=== PATIENT | female | born 1995 | race Caucasian/White ===

== ENCOUNTER 2017-10-27 14:21 | Emergency (ER) | payer SELFPAY ==
[2017-10-27 14:23] VITALS: BP 130/67; PULSE 70; RESP 16; TEMP 36.4; O2SAT 99; BMI 33.0
[2017-10-27] MEDS: DiphenhydrAMINE 50 MG/ML Syringe 25 MG IV (15:43)
[2017-10-27] MEDS: Metoclopramide 10 MG/2 ML Vial IV (15:43)
[2017-10-27] MEDS: 0.9% Normal Saline 1,000 ML 1000 ML IV (15:43)
[2017-10-27] MEDS: Acetaminophen 500 MG Tablet 1000 MG PO (15:44)
[2017-10-27 15:53] LABS: Mucous, Urine 0 SEEN /hpf (<or=2+); Red Blood Cells-Urine 0 SEEN /hpf (0-5)
[2017-10-27 15:58] LABS: Color, Urine Yellow (Yellow); Glucose, Dipstick Normal (Normal); Ketone-Dipstick Negative (Negative); Leukocyte Esterase-Dipstick 100 /ul (Negative); Nitrite-Dipstick Negative (Negative); Occult Blood-Urine Negative /ul (Negative); Protein-Dipstick 15 mg/dl (Negative); Urine Bilirubin Dipstick Negative (Negative); Urine Clarity Sl. Cloudy (Clear); Urine Urobilinogen Normal (Normal)
[2017-10-27 16:15] LABS: Bacteria 1+ /hpf (None Seen); Squamous Epithelial Cells - UA 0-5 SEEN /hpf (5-10); White Blood Cells 25-50 SEEN /hpf (0-5)
--- NOTE | 2017-10-27 16:39 | ED.VISSUMM ---
- ER Visit Summary Date of Service: 10/27/17 Chief Complaint: Vomiting and History of Present Illness: The patient is a 22 F who OB is in [place] and she now did not lives down here. She does not remember her vp respiratory's name. She is a at 4 months by ultrasound. She reports that she has not had problems with nausea throughout her . However, she has been nausea and vomited 3 times a day. She denies any abdominal pain. She reports her last bowel was yesterday. She has had no melena or hematochezia. No dysuria or frequency. No vaginal bleeding or discharge. On review of systems patient reports she has a headache that is 10 out of 10 severity. She does have a history of similar headaches. She describes it as aching and behind her eyes. She does have photophobia with it. No numbness, tingling, weakness, or change in her vision. Physical Examination: Vitals: Stable. Afebrile. General: Well-nourished and well-developed. Head: Normocephalic atraumatic. Neck: Supple, no lymphadenopathy. No JVD. Nontender. Cardiovascular: Regular rate and rhythm. No murmurs. Respiratory: No respiratory distress. Clear to auscultation bilaterally. Abdominal: Soft, nontender, nondistended, normal bowel sounds. No guarding, rebound, or peritoneal signs. Gravid uterus. Back: Nontender. Extremities: Nontender, no edema. Skin: Normal color, no rash. Neurologic: Alert and oriented ?3. Cranial nerves II through XII are intact. Normal strength and sensation. Psych: Normal affect. Test Results: UA has 25-50 white blood cells with 1+ bacteria. Emergency Department Course and Treatment: Patient had an IV placed. She was given Reglan, Toradol, and Rocephin IV. She is given Tylenol p.o. heart tones were 110. On repeat exam patient reports her headache is resolved. Treatment Plan: Patient will be discharged on Keflex and Zofran. Instructed to follow-up with Dr. Watson in 1 week for another exam. Return to the emergency department for any worsening symptoms. Disposition: To home in improved and stable condition. Impression: 1. Second trimester . 2. UTI. 3. Cephalgia. This note was generated with [employer] software. It may contain incorrect words, spelling, and punctuation that were not noted in review of the chart prior to signing ED Disposition - Plan for ED Patient: Disposition: Home or Assisted Living Chief Complaint: Nausea/Vomiting Instructions: ED UTI Cystitis Female Prescriptions: Ondansetron [Zofran Odt] 4 mg PO Q8H PRN PRN #10 tablet PRN Reason: Nausea Cephalexin [Keflex] 500 mg PO Q12 #14 capsule Referrals: Vandana Watson MD [STAFF PHYSICIAN] - 1 Week
[2017-10-27] MEDS: Ceftriaxone 1 GM/50 ML BAG IV (16:59)
[2017-10-27 18:10] VITALS: BP 122/74; PULSE 61; RESP 15; O2SAT 99
== END 2017-10-27 18:11 | disposition home or self-care (01) ==
PROVIDERS: Emergency Provider Emergency Medicine
DX: O23.42 Unspecified infection of urinary tract in pregnancy, second trimester (principal); O26.892 Other specified pregnancy related conditions, second trimester; R51 Headache; O99.89 Other specified diseases and conditions complicating pregnancy, childbirth and the puerperium; J02.9 Acute pharyngitis, unspecified; R05 Cough; O99.332 Smoking (tobacco) complicating pregnancy, second trimester; F17.200 Nicotine dependence, unspecified, uncomplicated; Z3A.00 Weeks of gestation of pregnancy not specified
CPT/HCPCS: 81001; 87086; 87088; 96361; 96365; 96374; 96375; 99283; J7030; A4216

== ENCOUNTER 2018-04-01 10:25 | Outpatient (CLI) | payer MEDICAID, SELFPAY ==
[2018-04-01 10:14] VITALS: BP 147/80; PULSE 120; RESP 16; TEMP 36.4; O2SAT 98; BMI 27.8
--- NOTE | 2018-04-01 10:30 | ED.RN ---
PT WENT TO OB
--- NOTE | 2018-04-01 10:50 | OB.TRI.NOTE ---
- Problem List (1) Abdominal pain Status: Acute History of Present Illness Date of Service: 04/01/18 Was patient seen by the physician?: Yes Reason For Visit: R/LABOR Date of Service: 04/01/18 History of Present Illness: Patient and her partner state they are not sure if she is . She says she has seen our office for a visit, but she does not know who she saw or when she saw us. Of note, she is not in our system and no prior visits are seen. She has taken home tests that were all negative. She does not know when her LMP was. She is a poor historian. She says this morning she began having RLQ pain that is severe and constant, and wraps around to her back. Has a good appetite but states she is having emesis that started today. No nausea. Denies fevers, chills, constipation, diarrhea, dysuria, hematuria. Allergies No Known Allergies Allergy (Verified 10/27/17 14:24) - Pertinent Past Medical History Pertinent Past Medical History: Patient denies any significant PMH or PSH history. She states she is not taking any medications Review of Systems Constitutional: Denies: Chills, Fever Gastrointestinal: Reports: Abdominal Pain, Vomiting. Denies: Constipation, Diarrhea, Nausea Genitourinary: Denies: Dysuria, Hematuria Physical Exam Vitals: Vital Signs Temp Pulse Resp BP Pulse Ox 97.6 F L 120 H 16 147/80 H 98 04/01/18 10:14 04/01/18 10:14 04/01/18 10:14 04/01/18 10:14 04/01/18 10:14 General: Alert, No apparent distress HEENT: Atraumatic Lungs: - - No increased resp effort Abdomen: Soft, Non-Distended, - - +Tenderness in RLQ, no rebounding, no gaurding, no rigidity Neurological: Neuro grossly intact Impression/Plan - TAUS performed showing a normal uterus, normal right ovary, and left ovary unable to be visualized - Will get urine test - Patient to then go to the ED for further workup of RLQ pain
[2018-04-01 11:04] LABS: Internal QC Validated? YES +Cl - CLEAR BKGD; Pregnancy, Urine Negative Negative
[2018-04-01 11:12] VITALS: BMI 27.8
--- NOTE | 2018-04-01 11:32 | NURSING ---
Patient presents to L&D with abdominal pain, unsure of LMP and states she is 21 weeks but she believes is due in April or May. Patient states she sees the [facility]. Dr. Anguiano on unit, US completed followed up by urine test which was negative. Plans per Dr. Anguiano to discharge patient from L&D and sent to ER for further evaluation. ER charge nurse called and updated on plan.
== END 2018-04-01 12:54 | disposition short-term general hospital (02) ==
LOC: WPOUT 10:43 → WP 10:43
PROVIDERS: Visit Provider Obstetrics & Gynecology
DX: R10.31 Right lower quadrant pain (principal); R11.10 Vomiting, unspecified
CPT/HCPCS: 59050; 76815; 81025; 99218; G0378

== ENCOUNTER 2018-04-01 11:27 | Emergency (ER) | payer MEDICAID, SELFPAY ==
[2018-04-01 11:12] VITALS: BMI 27.8
[2018-04-01 11:28] VITALS: BP 108/68; PULSE 96; RESP 16; TEMP 36.4; O2SAT 98; BMI 27.8
--- NOTE | 2018-04-01 11:42 | CT_ITS ---
STUDY: CT ABDOMEN AND PELVIS WITHOUT CONTRAST REASON FOR EXAM: Female, 22 years old. abdominal pain this am RADIATION DOSAGE (If Supplied By Facility): CTDIvol = ( 7.18 ) mGy, DLP = ( 358.80 ) mGycm TECHNIQUE: Transaxial images were obtained from the dome of the diaphragm to the symphysis pubis without oral contrast, and without intravenous contrast. Sagittal and coronal images were reconstructed. Individualized dose optimization techniques were used for this CT. COMPARISON: None. FINDINGS: The visualized lung bases are unremarkable. The visualized portions of the heart are within normal limits. Normal liver. Normal gallbladder and extrahepatic biliary system. Normal spleen. Normal pancreas. Normal bilateral adrenal glands. Normal right kidney. Normal left kidney. Normal visualized stomach. Normal small intestine. Normal colon. The appendix is visualized and appears normal. Normal abdominal aorta. Normal inferior vena cava. Normal retroperitoneum. There is mild induration of the mesenteric root with mildly prominent lymph nodes, but no dominant chandana mass. Normal urinary bladder. There is atrophy of the uterus. There is a vaginal tampon. Normal abdominal wall. Normal osseous structures. CT/Abdomen/Pelvis without Cont IMPRESSION: 1. No hydronephrosis or urinary tract calculi. 2. 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 NO bowel wall thickening. Electronically Signed: Sukhjinder Stern MD at 12:16 EST , Service support ,
--- NOTE | 2018-04-01 11:45 | ED.VISSUMM ---
- ER Visit Summary Date of Service: 04/01/18 Chief Complaint: Abdominal pain History of Present Illness: The patient is a 22 F who woke from sleep this morning around 3 AM with abdominal pain. She states it feels that starts under her ribs, moves down her abdomen, and then wraps around her sides. She initially claimed to be approximately 5 months and was sent to OB. She was seen here in the ER in October 2007 and documents at that time showed history of 4-month and heart tones are measured at 110. Will be determined the patient was not in fact was sent back to the ER for further workup. Patient reports unknown last period. She states that she had 4 episodes of vomiting this morning. She denies diarrhea. She does not know when her last bowel movement was. She denies any prior abdominal surgeries. Physical Examination: Vital signs unremarkable. Patient sitting upright in bed no acute distress. Head neck examination normal. Heart is regular rate and rhythm. Lungs sounds are clear. Abdomen is soft with diffuse tenderness, worse in the right lower quadrant. Active bowel sounds are noted throughout. Test Results: CBC reveals a white count 11.7 with 76% neutrophils. Chemistry studies unremarkable. Urinalysis shows greater than 100 RBCs with 5-[address] flank shows no evidence of hydronephrosis or urinary tract calculus. Vaginal tampon is noted. Emergency Department Course and Treatment: Patient was given IV fluids, Toradol, and Zofran. On repeat evaluation she is resting comfortably and does feel improved. She now tells me that her periods started during the night last night and she put a tampon in. She did get up to the restroom and removed the tampon. She denies any vaginal discharge. She is given prescription for Toradol and Zofran. Treatment Plan: [] Disposition: Discharge Impression: Pelvic pain This note was generated with [employer] dictation software. It may contain incorrect words, spelling, and punctuation that were not noted in review of the chart prior to signing ED Disposition - Plan for ED Patient: Disposition: Home or Assisted Living Instructions: ED Abdominal Pain Unkn Cause Prescriptions: Ondansetron [Zofran Odt] 4 mg PO Q8H PRN PRN #10 tablet PRN Reason: Nausea Ketorolac [Toradol] 10 mg PO Q6H PRN #20 tablet PRN Reason: Pain Referrals: Sara Anguiano DO [STAFF PHYSICIAN] - As Needed
[2018-04-01 11:51] LABS: Mucous, Urine 0 SEEN /hpf (<or=2+)
[2018-04-01 11:52] LABS: Color, Urine Yellow (Yellow); Glucose, Dipstick Normal (Normal); Ketone-Dipstick Negative (Negative); Leukocyte Esterase-Dipstick 25 /ul (Negative); Nitrite-Dipstick Negative (Negative); Occult Blood-Urine 250 /ul (Negative); Protein-Dipstick 15 mg/dl (Negative); Urine Bilirubin Dipstick Negative (Negative); Urine Clarity Clear (Clear); Urine Urobilinogen Normal (Normal)
[2018-04-01] MEDS: Ondansetron 4 MG/2 ML Vial IV (11:53)
[2018-04-01] MEDS: Ketorolac 30 MG/ML Syringe IV (11:53)
[2018-04-01] MEDS: 0.9% Normal Saline 1,000 ML 1000 ML IV (11:53)
[2018-04-01 11:58] LABS: Bacteria 1+ /hpf (None Seen); Red Blood Cells-Urine > 100 SEEN /hpf (0-5); Squamous Epithelial Cells - UA 5-10 SEEN /hpf (5-10); White Blood Cells 0-5 SEEN /hpf (0-5)
[2018-04-01 12:04] LABS: Absolute Lymphocyte Count 1.94 X10^3/ul (0.83-4.51); Basophil# 0.03 X10^3/uL; Basophil% 0.3 % (0-1); Eosinophil# 0.06 X10^3/uL; Eosinophils% 0.5 % (0-5); Hematocrit 45.5 % (37-47); Hemoglobin 14.6 g/dl (12.0-15.0); Lymphocyte # 1.94 X10^3/ul (4.0); Lymphocyte % 16.7 % (19-41); Mean Corp Hgb Conc 32.1 g/gl (32-36); Mean Corpuscular Hgb 28.2 pg (27.0-32.0); Monocyte# 0.62 X10^3/uL; Monocyte% 5.3 % (0-10); Neutrophil # 8.97 X10^3/uL (2.7-7.7); Neutrophil % 76.9 % (47-70); Platelet Count 322 K/mm3 (150-450); RBC Distribution Width CV 14.5 % (11.6-14.6); RBC Distribution Width SD 46.6 fl (35.1-43.9); Red Blood Count 5.17 M/mm3 (4.2-5.4); White Blood Count 11.7 K/mm3 (4.4-11.0)
[2018-04-01 12:05] LABS: POSITIVE COUNT NO; POSITIVE DIFFERENTIAL NO; POSITIVE MORPHOLOGY NO
[2018-04-01 12:16] LABS: Anion Gap 11 (5-15); BUN 9 mg/dL (7-18); BUN/Creat Ratio 15.7 RATIO (10-20); Calcium,Total 8.5 mg/dL (8.5-10.1); Chloride 108 mmol/L (98-107); Creatinine, Serum 0.57 mg/dL (0.55-1.02); EST Glomerular Filtration Rate 140 mL/min (>60); Est Glom Filt Rate - Afr Amer 170 mL/min (>60); Estimated Creatinine Clearance 117.81 ml/min; Glucose 78 mg/dL (74-106); Potassium 3.7 mmol/L (3.5-5.1); Sodium Level 142 mmol/L (136-145)
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
--- NOTE | 2018-04-01 14:17 | ED.DEP ---
ED Disposition - Plan for ED Patient: Disposition: Home or Assisted Living Instructions: ED Abdominal Pain Unkn Cause Prescriptions: Ondansetron [Zofran Odt] 4 mg PO Q8H PRN PRN #10 tablet PRN Reason: Nausea Ketorolac [Toradol] 10 mg PO Q6H PRN #20 tablet PRN Reason: Pain Referrals: Sara Anguiano DO [STAFF PHYSICIAN] - As Needed
[2018-04-01 14:56] VITALS: BP 101/64; PULSE 91; RESP 16; O2SAT 98; O2SAT 99
== END 2018-04-01 14:57 | disposition home or self-care (01) ==
PROVIDERS: Emergency Provider Emergency Medicine
DX: R10.2 Pelvic and perineal pain (principal); R11.2 Nausea with vomiting, unspecified; Z72.0 Tobacco use; R10.31 Right lower quadrant pain
CPT/HCPCS: 59050; 74176; 76815; 80048; 81001; 81025; 85025; 96361; 96374; 96375; 99218; 99283; J7030; G0378; J2405

== ENCOUNTER 2018-05-04 23:27 | Outpatient (REF) | payer SELFPAY ==
[2018-05-05 03:24] LABS: Pregnancy, Serum, hCG Quali. NEGATIVE Negative (0-9 Nonpreg)
== END 2018-05-05 04:00 | disposition home or self-care (01) ==
LOC: EDREF 23:27
PROVIDERS: Emergency Medicine
DX: Z04.41 Encounter for examination and observation following alleged adult rape (principal)
CPT/HCPCS: 84703

== ENCOUNTER 2018-06-09 15:54 | Emergency (ER) | payer MEDICAID, SELFPAY ==
[2018-06-09 15:55] VITALS: BP 118/60; PULSE 87; RESP 18; TEMP 36.4; O2SAT 100; BMI 24.9
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
[2018-06-09 17:13] LABS: hCG Titer Quant., Serum < 1 mIU/mL (<9 non-preg)
[2018-06-09 18:01] VITALS: PULSE 87; RESP 16; O2SAT 98
[2018-06-09 19:31] VITALS: BP 114/73; PULSE 81; RESP 16; O2SAT 99
== END 2018-06-09 19:32 | disposition home or self-care (01) ==
PROVIDERS: Emergency Provider Emergency Medicine
DX: S80.01XA Contusion of right knee, initial encounter (principal); S80.211A Abrasion, right knee, initial encounter; S00.83XA Contusion of other part of head, initial encounter; S00.81XA Abrasion of other part of head, initial encounter; M54.2 Cervicalgia; V13.4XXA Pedal cycle driver injured in collision with car, pick-up truck or van in traffic accident, initial encounter; Y93.9 Activity, unspecified; Y92.9 Unspecified place or not applicable; F17.200 Nicotine dependence, unspecified, uncomplicated
CPT/HCPCS: 72040; 73560; 84702; 99285; A4216

== ENCOUNTER 2018-08-04 16:13 | Emergency (ER) | payer MEDICAID, SELFPAY ==
[2018-08-04 16:15] VITALS: BP 114/64; PULSE 115; RESP 18; TEMP 36.6; O2SAT 99; BMI 26.6
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
--- NOTE | 2018-08-04 17:02 | RAD_ITS ---
STUDY: X-RAY - LEFT FOOT CLINICAL: Female, 23 years old. Fall and pain TECHNIQUE: 3 view(s) of the foot. COMPARISON: None. FINDINGS: Normal talus, calcaneus, and tarsal bones. Normal visualized subtalar, talonavicular, calcaneocuboid, tarsal and tarsometatarsal articulations. Normal metatarsi. Normal metatarsophalangeal joint of the great toe. Normal tibial and fibular sesamoid bones. Normal interphalangeal joint of the great toe. Normal phalanges of the great toe. Normal second through fifth metatarsophalangeal joints. Normal interphalangeal joints and phalanges of the lesser toes. The soft tissue structures are unremarkable. RAD/Foot min 3 Views IMPRESSION: No acute osseous injury is evident. Electronically Signed: Vicente Moran MD at 17:26 EDT Tel , Service support ,
[2018-08-04] MEDS: Acetaminophen 500 MG Tablet 1000 MG PO (17:13)
--- NOTE | 2018-08-04 18:27 | ED.VISSUMM ---
- ER Visit Summary Date of Service: 08/04/18 Chief Complaint: Twisted left lateral ankle c/o of pain. History of Present Illness: The patient is a 23 F past medical surgical history. Twisted her ankle several times a day because of pain in the left lateral ankle foot and left lower leg. Denies other injuries. No prior history of surgery to the left leg. Physical Examination: Well-appearing young female no acute distress. Vital signs are stable afebrile. H EENT exam atraumatic nontender. Light. C-spine nontender. Lungs clear to auscultation bilaterally. Heart regular rate and rhythm no murmur. Chest nontender. Abdomen soft nontender. Both upper extremities right lower extremity nontender, neurovascular intact with normal range of motion, motor strength and sensation. The left lateral ankle is mildly swollen and tender. DP pulses intact. Dorsi and plantar flexion intact she also tenderness along the proximal left foot and mid portion to lower leg. The left hip and knee are nontender. The left lower extremity is neurovascular intact. There is no gross bony deformities. Achilles tendon is intact. Test Results: Left tib-fib x-ray 2 view shows no acute abnormality read both by myself and radiologist. Left foot x-ray shows no acute abnormalities 3 views read both by myself and the radiologist. Emergency Department Course and Treatment: I did go over the x-rays with the patient. She was given Tylenol for pain. Treatment Plan: Treated as an ankle sprain. Ice and elevate. Tylenol Motrin for pain. Aircast. Increase activity as tolerated. Follow-up if not improving. Disposition: Discharge Impression: Left ankle sprain This note was generated with [employer] dictation software. It may contain incorrect words, spelling, and punctuation that were not noted in review of the chart prior to signing ED Disposition - Plan for ED Patient: Referrals: Care Physician,No Primary [Primary Care Provider] -
--- NOTE | 2018-08-04 18:30 | ED.DEP ---
ED Disposition - Plan for ED Patient: Disposition: Home or Assisted Living Instructions: ED Sprain Ankle W X Ray Referrals: Bridger Rodriguez MD [STAFF PHYSICIAN] - 1 Week if not improving Additional Instructions: Ice and elevate. Tylenol and Motrin for pain and swelling. Increase activity as tolerated if not improving you need to have this reevaluated. X-rays were normal today. No fracture.
[2018-08-04 18:41] VITALS: PULSE 100; RESP 16
== END 2018-08-04 18:41 | disposition home or self-care (01) ==
PROVIDERS: Emergency Provider Emergency Medicine
DX: S93.402A Sprain of unspecified ligament of left ankle, initial encounter (principal); R05 Cough; X50.1XXA Overexertion from prolonged static or awkward postures, initial encounter; Y93.9 Activity, unspecified; Y92.9 Unspecified place or not applicable; Z72.0 Tobacco use
CPT/HCPCS: 73590; 73630; 99283

== ENCOUNTER 2019-03-06 14:51 | Emergency (ER) | payer MEDICAID, SELFPAY ==
[2019-03-06 14:51] VITALS: BP 129/55; PULSE 144; RESP 24; TEMP 36.8; O2SAT 99
[2019-03-06 14:52] VITALS: BP 129/55; PULSE 144; RESP 24; TEMP 36.8; O2SAT 99; BMI 30.7
--- NOTE | 2019-03-06 15:10 | ED.VISSUMM ---
- ER Visit Summary Date of Service: 03/06/19 Chief Complaint: [Vomiting ] History of Present Illness: The patient is a 23 F [resents with vomiting that started 2 days ago. She denies any significant abdominal pain. She denies any fever. She has had some sweats. Patient unsure of her last menstrual period but thinks it was in November. She is taken some home test have been negative. She denies any diarrhea. She denies sick contacts. Patient also developed a cough that started 2 days ago. Patient has no medical history. She denies any body aches. She denies sore throat.] Physical Examination: [HEENT-PERRLA, EOMI. Cranial nerves II through XII grossly intact. TMs clear. Mucous membranes moist. No adenopathy. Cardiovascular-regular rate and rhythm without murmur or ectopy Lungs-clear to auscultation, chest wall stable without crepitus or subcu emphysema Abdomen-normoactive bowel sounds, soft. Patient has some mild diffuse tenderness more specifically in the lower quadrants. There is no rebound, rigidity, or peritoneal signs. Extremities-intact ?4, normal range of motion, normal pulses, atraumatic] Test Results: [CBC with differential showed an elevated white count of 13, hemoglobin 10.6, hematocrit 32, placed to 92. Chemistries unremarkable. LFTs unremarkable. Urinalysis unremarkable. hCG was positive. A quant was performed and was 8859. Ultrasound obtained showed a 24-week 4-day IUP with a heart rate of 156. Influenza screen was positive.] Emergency Department Course and Treatment: [Was given a liter normal saline fluid bolus. Patient given Zofran 4 mg IV.] Treatment Plan: [Patient will be discussed with PLANT MAINTENANCE MECHANIC on-call to arrange follow-up for the patient as she is had no care. Patient will be started on Tamiflu.] Disposition: [Discharged home in stable condition] Impression: [Influenza 24 weeks 4 days] This note was generated with [employer] software. It may contain incorrect words, spelling, and punctuation that were not noted in review of the chart prior to signing ED Disposition - Plan for ED Patient: Referrals: Care Physician,No Primary [Primary Care Provider] -
[2019-03-06] MEDS: 0.9% Normal Saline 1,000 ML 1000 ML IV (15:26)
[2019-03-06] MEDS: Ondansetron 4 MG/2 ML Vial IV (15:26)
[2019-03-06 15:42] LABS: ALB/GLOB Ratio 0.6 RATIO (0.9-2.4); AST(SGOT) 16 U/L (15-37); Alanine Aminotransfer ALT/SGPT 26 U/L (13-56); Albumin, Serum 2.4 g/dL (3.2-5.0); Alkaline Phosphatase 82 U/L (45-117); Anion Gap 6 (5-15); BUN 7 mg/dL (7-18); BUN/Creat Ratio 12.6 RATIO (10-20); Calcium,Total 8.8 mg/dL (8.5-10.1); Chloride 107 mmol/L (98-107); Creatinine, Serum 0.56 mg/dL (0.55-1.02); EST Glomerular Filtration Rate 144 mL/min (>60); Est Glom Filt Rate - Afr Amer 174 mL/min (>60); Estimated Creatinine Clearance 130.35 ml/min; Globulin 4.2 g/dL (2.2-4.2); Glucose 94 mg/dL (74-106); Potassium 3.8 mmol/L (3.5-5.1); Protein, Total 6.6 g/dL (6.4-8.2); Sodium Level 136 mmol/L (136-145)
[2019-03-06 15:57] LABS: Internal QC Validated? YES +Cl - CLEAR BKGD
[2019-03-06 15:59] LABS: Pregnancy, Serum, hCG Quali. POSITIVE Negative
[2019-03-06 16:00] LABS: Bacteria 0 SEEN /hpf (None Seen); Mucous, Urine 0 SEEN /hpf (<or=2+); Red Blood Cells-Urine 0 SEEN /hpf (0-5)
--- NOTE | 2019-03-06 16:00 | US_ITS ---
STUDY: SECOND AND THIRD TRIMESTER OBSTETRICAL ULTRASOUND REASON FOR EXAM: Female, 23 years old PELVIC PAIN RADIATES TO BACK - X 1 YEAR UNKNOWN LMP LMP: Unknown TECHNIQUE: Transabdominal TECHNICAL QUALITY: Adequate. PRIOR ULTRASOUND: None. FINDINGS: There is a single intrauterine fetus. The fetus is in a cephalic presentation. There is demonstrated cardiac activity with a heart rate of 156 bpm. There is a normal amniotic fluid volume. The largest amniotic fluid pocket measures 3.1 cm. The amniotic fluid index (SHANTA) is 13.6 cm. The placenta is anterior in location and is not low lying. There are Grade 1 placental changes.. Right ovary not visualized left ovary measures 4.1 x 3 x 2.6 cm. BIOMETRY: BPD: 6 cm: 24 weeks, 4 days HC: 22.8 cm: 24 weeks, 6 days AC: 18.9 cm: 23 weeks, 5 days FL: 4.5 cm: 24 weeks, 5 days CI: 78% FL/BPD: 74% FL/AC: 24% HC/AC: 1.21 age by current US: 24 weeks, 4 days. DRAKE by current US: June 22, 2019. Estimated weight: 670 grams, +/- 98 grams. US/OB Limited With Biometrics IMPRESSION: 24 week 4 day intrauterine Electronically Signed: Abdullahi St MD at 17:40 EST , Service support ,
[2019-03-06 16:04] LABS: Color, Urine Yellow (Yellow); Glucose, Dipstick Normal (Normal); Ketone-Dipstick Negative (Negative); Leukocyte Esterase-Dipstick 25 /ul (Negative); Nitrite-Dipstick Negative (Negative); Occult Blood-Urine Negative /ul (Negative); Protein-Dipstick 15 mg/dl (Negative); Specific Gravity, Urine 1.015 (1.002-1.030); Urine Bilirubin Dipstick Negative (Negative); Urine Clarity Sl. Cloudy (Clear); Urine Urobilinogen Normal (Normal)
[2019-03-06 16:35] LABS: Absolute Lymphocyte Count 1.02 X10^3/uL (0.83-4.51); Absolute Neutrophil Count 10.7 X10^3/uL (2.0-7.7); Basophil# 0.02 X10^3/uL; Basophil% 0.2 % (0-1); Eosinophil# 0.01 X10^3/uL; Eosinophils% 0.1 % (0-5); Hemoglobin 10.6 g/dL (12.0-15.0); Lymphocyte # 1.02 X10^3/ul (4.0); Lymphocyte % 7.9 % (19-41); Mean Corp Hgb Conc 33.1 g/dL (32-36); Mean Corpuscular Hgb 29.9 pg (27.0-32.0); Mean Corpuscular Volume 90.4 fL (81-99); Mean Platelet Vol. 10.7 fl (6.2-12.0); Monocyte# 1.18 X10^3/uL; Monocyte% 9.1 % (0-10); NRBC Flagged by Analyzer 0 % (0-5); Neutrophil # 10.65 X10^3/uL (2.7-7.7); Neutrophil % 82.1 % (47-70); Platelet Count 292 K/mm3 (150-450); RBC Distribution Width CV 13.2 % (11.6-14.6); RBC Distribution Width SD 43.3 fl (35.1-43.9); Red Blood Count 3.54 M/mm3 (4.2-5.4)
[2019-03-06 16:46] LABS: Squamous Epithelial Cells - UA 0-5 SEEN /hpf (5-10); White Blood Cells 0-5 SEEN /hpf (0-5)
[2019-03-06 17:03] LABS: hCG Titer Quant., Serum 8859 mIU/mL (1-3)
[2019-03-06 17:26] VITALS: BP 127/65; PULSE 113; RESP 15; O2SAT 99
--- NOTE | 2019-03-06 18:10 | ED.DEP ---
ED Disposition - Plan for ED Patient: Instructions: INFLUENZA (Adult), Care for a Healthy Baby Prescriptions: Oseltamivir Phosphate [Tamiflu] 75 mg PO BID #10 cap Transmission Status: Pending to [facility] Ondansetron [Zofran Odt] 4 mg PO Q8H PRN PRN #10 tab PRN Reason: Nausea Transmission Status: Pending to [facility] Referrals: Care Physician,No Primary [Primary Care Provider] - Durga Fuller MD [STAFF PHYSICIAN] - 3-5 Days
[2019-03-06 19:01] VITALS: BP 111/67; PULSE 116; RESP 14; O2SAT 98
== END 2019-03-06 19:05 | disposition home or self-care (01) ==
PROVIDERS: Emergency Provider Emergency Medicine
DX: O99.512 Diseases of the respiratory system complicating pregnancy, second trimester (principal); J11.1 Influenza due to unidentified influenza virus with other respiratory manifestations; O99.332 Smoking (tobacco) complicating pregnancy, second trimester; F17.200 Nicotine dependence, unspecified, uncomplicated; Z3A.24 24 weeks gestation of pregnancy
CPT/HCPCS: 76816; 80048; 80053; 81001; 84702; 84703; 85025; 87804; 96361; 96374; 99283; J7030; J2405

== ENCOUNTER → 2019-03-13 15:44 | Outpatient (CLI) | payer MEDICAID, SELFPAY ==
[2019-03-13 17:58] LABS: Absolute Lymphocyte Count 3.87 X10^3/uL (0.83-4.51); Absolute Neutrophil Count 8.3 X10^3/uL (2.0-7.7); Basophil# 0.04 X10^3/uL; Basophil% 0.3 % (0-1); Eosinophil# 0.06 X10^3/uL; Eosinophils% 0.5 % (0-5); Hematocrit 37.6 % (37-47); Lymphocyte # 3.87 X10^3/ul (4.0); Lymphocyte % 29.5 % (19-41); Mean Corp Hgb Conc 31.9 g/dL (32-36); Mean Corpuscular Hgb 29.4 pg (27.0-32.0); Mean Corpuscular Volume 92.2 fL (81-99); Mean Platelet Vol. 10.5 fl (6.2-12.0); Monocyte% 5.3 % (0-10); NRBC Flagged by Analyzer 0 % (0-5); Neutrophil # 8.32 X10^3/uL (2.7-7.7); Neutrophil % 63.3 % (47-70); Platelet Count 424 K/mm3 (150-450); RBC Distribution Width CV 13.1 % (11.6-14.6); RBC Distribution Width SD 44.2 fl (35.1-43.9); Red Blood Count 4.08 M/mm3 (4.2-5.4); White Blood Count 13.1 K/mm3 (4.4-11.0)
[2019-03-13 18:02] LABS: Color, Urine Yellow (Yellow); Glucose, Dipstick Normal (Normal); Ketone-Dipstick 50 mg/dl (Negative); Leukocyte Esterase-Dipstick 500 /ul (Negative); Nitrite-Dipstick Negative (Negative); Occult Blood-Urine Negative /ul (Negative); Protein-Dipstick Negative (Negative); Urine Clarity Cloudy (Clear); Urine Urobilinogen 4 mg/dl (Normal)
[2019-03-13 18:06] LABS: Urine Bilirubin Dipstick 1 mg/dL (Negative)
[2019-03-13 18:34] LABS: Thyroid Stim Hormone (TSH) 1.27 uIU/mL (0.358-3.74)
[2019-03-13 18:39] LABS: Amphetamine Urine VISTA NEGATIVE (<1000 ng/mL); Barbiturate Urine VISTA NEGATIVE (< 200 ng/mL); Benzodiazepine Urine VISTA NEGATIVE (< 200 ng/mL); Cocaine Urine VISTA NEGATIVE (< 300 ng/mL); Ecstacy Urine VISTA NEGATIVE (< 500 ng/mL); Methadone Urine VISTA NEGATIVE (< 300 ng/mL); PCP Urine VISTA NEGATIVE (< 25 ng/mL); THC Urine VISTA NEGATIVE (< 50 ng/mL); Vista UDS pH Range 5
[2019-03-14 01:52] LABS: Prenatal RPR NONREACTIVE (NONREACTIVE)
[2019-03-14 11:22] LABS: HIV - WCH Non-Reactive (Nonreactive); Hepatitis B Surface Antigen Non-Reactive (Nonreactive); Hepatitis C Antibody Non-Reactive (Nonreactive); Rubella IgG 20.1 IU/mL
[2019-03-15 17:09] LABS: V-Zoster IgG (Immunity) 502 index (Immune >165)
== END ==
PROVIDERS: Visit Provider Obstetrics & Gynecology
DX: Z34.82 Encounter for supervision of other normal pregnancy, second trimester (principal)
CPT/HCPCS: 36415; 80307; 81002; 84443; 85025; 86703; 86762; 86787; 86803; 87340

== ENCOUNTER → 2019-03-27 13:29 | Outpatient (CLI) | payer MEDICAID, SELFPAY ==
[2019-03-27 15:49] LABS: Hematocrit 37.8 % (37-47); Hemoglobin 12.1 g/dL (12.0-15.0); Mean Corpuscular Hgb 29.2 pg (27.0-32.0); Mean Corpuscular Volume 91.3 fL (81-99); Mean Platelet Vol. 10.5 fl (6.2-12.0); Platelet Count 407 K/mm3 (150-450); RBC Distribution Width SD 43.5 fl (35.1-43.9); Red Blood Count 4.14 M/mm3 (4.2-5.4); White Blood Count 17.5 K/mm3 (4.4-11.0)
[2019-03-27 15:59] LABS: Glucose Challenge Gest 1H 50g 136 mg/dL (70-140)
== END ==
LOC: LABSPEC 13:33 → WOBLAB 13:34
PROVIDERS: Visit Provider Obstetrics & Gynecology
DX: Z34.82 Encounter for supervision of other normal pregnancy, second trimester (principal)
CPT/HCPCS: 36415; 82950; 85027

== ENCOUNTER → 2019-04-24 | Outpatient (CLI) | payer MEDICAID, SELFPAY ==
[2019-04-24 17:04] LABS: ROM Internal Control Test YES-OK TO RESULT pt. (Internal QC); ROM Patient Test Negative (Negative)
== END | disposition home or self-care (01) ==
LOC: LABSPEC 16:31
PROVIDERS: Visit Provider Obstetrics & Gynecology
DX: O42.90 Premature rupture of membranes, unspecified as to length of time between rupture and onset of labor, unspecified weeks of gestation (principal); Z3A.00 Weeks of gestation of pregnancy not specified
CPT/HCPCS: 84112

== ENCOUNTER → 2019-05-31 | Outpatient (CLI) | payer MEDICAID, SELFPAY | END | disposition home or self-care (01) | LOC: LABSPEC 16:36 | PROVIDERS: Referring Provider Obstetrics & Gynecology; Visit Provider Obstetrics & Gynecology | DX: R30.0 Dysuria (principal); Z36.85 Encounter for antenatal screening for Streptococcus B | CPT/HCPCS: 87081 ==

== ENCOUNTER 2019-06-07 13:56 | Inpatient (IN) | payer MEDICAID, SELFPAY ==
[2019-06-07] VITALS (25 sets, daily range): BP systolic 111–141; BP diastolic 53–80; PULSE 77–132; TEMP 36.4–37; O2SAT 89–100; BMI 32.5
[2019-06-07 17:08] LABS: ROM Internal Control Test YES-OK TO RESULT pt. (Internal QC)
[2019-06-07 17:11] LABS: ROM Patient Test POSITIVE (Negative)
[2019-06-07] MEDS: Lactated Ringers 1,000 ML 50 ML IV (17:58)
[2019-06-07 18:15] LABS: Absolute Lymphocyte Count 3.92 X10^3/uL (0.83-4.51); Absolute Neutrophil Count 12.5 X10^3/uL (2.0-7.7); Basophil# 0.05 X10^3/uL; Basophil% 0.3 % (0-1); Eosinophils% 0.6 % (0-5); Hematocrit 39.8 % (37-47); Lymphocyte # 3.92 X10^3/ul (4.0); Lymphocyte % 21.8 % (19-41); Mean Corp Hgb Conc 32.7 g/dL (32-36); Mean Corpuscular Hgb 29.5 pg (27.0-32.0); Mean Corpuscular Volume 90.5 fL (81-99); Mean Platelet Vol. 9.9 fl (6.2-12.0); Monocyte# 1.31 X10^3/uL; Monocyte% 7.3 % (0-10); NRBC Flagged by Analyzer 0 % (0-5); Neutrophil # 12.49 X10^3/uL (2.7-7.7); Neutrophil % 69.3 % (47-70); Platelet Count 439 K/mm3 (150-450); RBC Distribution Width CV 13.4 % (11.6-14.6); RBC Distribution Width SD 44.8 fl (35.1-43.9)
[2019-06-07] MEDS: Lactated Ringers 500 ML 999 ML IV ×2 (18:52→20:31)
--- NOTE | 2019-06-07 18:54 | HP.PCM_ITS ---
- Problem List (1) SROM (spontaneous rupture of membranes) Status: Acute History Date of Admission: 06/07/19 Final DRAKE: 06/22/19 Final DRAKE Source: US >20 weeks Gestational age: 37 Weeks and 6 Days History of this : This is a 24 year-old, G [1], P [], at 37 weeks gestational age with c/o LOF since 1530h Medical History: Medical History (Last Updated 06/07/19 @ 18:[address] Amy Agudelo MD) Bipolar disorder F31.9 Surgical History: Surgical History (Last Updated 06/07/19 @ 18:[address] Amy Agudelo MD) H/O wisdom tooth extraction K08.409 Allergies No Known Allergies Allergy (Verified 06/07/19 16:14) Home Medications: Home Medications Vits [Prenatabs FA] 1 tab PO DAILY 06/07/19 Smoking Status: Light Smoker (<10/day) Alcohol: None Number of Fetus(es): 1 NST - FHR Rate Baby A Baseline: 115 Variability:: Moderate Accelerations:: 15 x 15 Decelerations:: None NST Reactive:: Yes FHR Category:: Category I Uterine Activity:: 2/10 History Past Pregnancies: Past Pregnancies Delivery Date Name GA/ Weeks Outcome Route Wt Sex Labor Length Anesthesia Delivery Location Provider FOB Labs: Mom's Labs & Results 06/07/19 06/07/19 06/07/19 16:30 17:58 17:58 WBC 18.0 H RBC 4.40 Hgb 13.0 Hct 39.8 MCV 90.5 MCH 29.5 MCHC 32.7 RDW Std Deviation 44.8 H RDW Coeff of Shaheed 13.4 Plt Count 439 MPV 9.9 Immature Gran % (Auto) 0.700 Neut % (Auto) 69.3 Lymph % (Auto) 21.8 Yuba % (Auto) 7.3 Eos % (Auto) 0.6 Baso % (Auto) 0.3 Absolute Neuts (auto) 12.5 H Absolute Lymphs (auto) 3.92 Nucleated RBC % 0 Vag Amniotic Fld Detect POSITIVE H Blood Type Pending Antibody Screen Pending Course Did the patient receive Yes care? Labs Blood Type: A RH: POSITIVE RPR/VDRL/Syphilis Nonreactive Rubella status Immune HbSAg Negative Date Done: 03/13/19 Chlamydia Negative Gonorrhea Negative HIV/AIDS Non-Reactive Group B Strep: Negative Current Obstetrical History Gestational Diabetes No Incompetent Cervix No Infertility No IUGR No Macrosomia No Hypertension/Pre-eclampsia No Placenta Previa/Abruption No PTL/PROM No Uterine anomaly No Oligohydramnios No Polyhydramnios No Multiple gestation No Past Medical History Asthma No Diabetes No Hypertension No Heart disease No Mitral valve prolapse No Neurologic/Seizure disorder/ No Migraines Kidney disease No Liver disease No Varicosities No Clotting disorders/Hx of DVT No Thyroid Dysfunction No Other medical diseases HPV Psychiatric disorders Yes: bipolar Major trauma No Abnormal PAP smear No Sleep apnea No Mammogram in the last 2 years No Social History Marital Status: SINGLE Alleged father Aren Hx Smoking Yes Smoking Status Current every day smoker Expected Delivery Method: Spontaneous Vaginal Number of Visits: 6 Review of Systems Constitutional: Denies: Chills, Fever Eyes: Denies: Vision Change HEENT: Denies: Head Aches Cardiovascular: Denies: Chest Pain Respiratory: Denies: Shortness of Breath Gastrointestinal: Denies: Abdominal Pain, Vomiting Gynecological: Reports: - - contractions Neurological: Denies: Blurred vision, Double vision Physical Exam Vitals: Vital Signs Temp Pulse BP Pulse Ox 97.7 F L 84 132/60 H 99 06/07/19 18:42 06/07/19 18:42 06/07/19 18:42 06/07/19 18:42 General: Alert, Oriented x3, Cooperative, No apparent distress HEENT: Atraumatic, Normocephalic Cardiovascular: Regular rate, Regular Rhythm, Normal S1, Normal S2 Lungs: Clear to auscultation, Normal air movement, No rhonchi, No wheeze, No rales Abdomen: Soft, Non Tender, Non-Distended, Gravid Extremities:: No edema Neurological: Neuro grossly intact FACILITIES PLANT ENGINEER: Normal external genitalia Estimated gestational size: Appropriate for gestational size Presentation: Cephalic Cervix Dilation (cm): 3 Station: -2 Effacement (%): 60 Assessment/Plan All Active Problems SROM (spontaneous rupture of membranes) (Acute) This is a 24 year-old, G [1], P [], at 37 6/7 weeks gestational age, Cat I FHR -Prior exam 2--->3cm. Offered pitocin augmentation, r/b reviewed, pt declines at this time. Expectant management. -Repeat exam in approx 4 hours or sooner as indicated -Pain management per patient request -Consents signed and reviewed including review of C/S indications, risks and risks. Patient and partner given opportunity to ask questions and questions answered to their satisfaction.
[2019-06-07] MEDS: fentaNYL-bupivacaine (epidural) 100 ML BAG EPIDURAL (20:18)
[2019-06-08] VITALS (23 sets, daily range): BP systolic 98–134; BP diastolic 42–94; PULSE 79–98; RESP 14–22; TEMP 36.3–37.1; O2SAT 96–100
--- NOTE | 2019-06-08 | PLAC_PTH ---
PATIENT: KAYLA ROSA LOC: [facility] U#:[id number] AGE/SX: 24/F ROOM: WP005 RE06/07/[address]: Dr. Amy Tubbs MD : 1995 BED: 1 DIS: 06/10/2019 SPEC #: [id number] RECD: 06/08/19 02:39 STATUS: ZENAIDA REQ #: [id number] ROSARIO: 06/08/19 00:[address]: Amy Arceo DEPT: SURGICAL PATHOLOGY RECD BY: Julio Cesar Segura ENTERED: 06/10/19 10:06 SP TYPE: PLACENTA OTHR DR: No Primary Care Phys Tissues: Placenta, NOS Procedures: Surgery Specimen Level V HEADER OPERATION: Primary section PRE-OP DIAGNOSIS: 38wga, SROM, IUGR TISSUE SUBMITTED: Placenta MICROSCOPIC DIAGNOSIS Gutierrez placenta (355 gm): Umbilical cord - trivascular with no inflammation. Placental membranes - mild acute decidual inflammation. Placental disc - Nigel change, intervillous congestion and mild increased intraparenchymal fibrin plaques. AM:rachid 06/11/19 MICROSCOPIC DESCRIPTION Slides are reviewed. GROSS DESCRIPTION SPECIMEN: PLACENTA / CLINICAL INFORMATION: A. Weight: 2.179 kg B. Gestational Age: 38 weeks C. Sex: Female PLACENTAL WEIGHT (POST FIXATION): 355 gm PLACENTAL DIMENSIONS: 18 x 17 x 3.5 cm PLACENTAL SHAPE: Usual ovoid PLACENTAL WEIGHT FOR GESTATIONAL AGE: Within 10-99th percentile MEMBRANES - Present A. Insertion: Marginal B. Site of rupture from edge: Membranes appear to be incomplete. Distance of rupture cannot be assessed. C. Color of membrane: Osorio-goddard D. Abnormalities: None UMBILICAL CORD - Present A. Color: Osorio-goddard B. Insertion: Central C. Length: 16 cm D. Diameter: 1 cm E. Number of vessels: Three F. Abnormalities: A few false knots are noted. PLACENTAL DISC - Present A. Color of surface: Osorio-goddard B. surface abnormalities: None C. Maternal cotyledons: Intact with minimal tears D. Attached retro placental clot: No clot E. Cut surface: Dark red and spongy F. Lesions: None G. Separate clot: Absent SECTIONS SUBMITTED: 1. Membrane roll 2. Cord, maternal end 3. Cord, end 4. Placental disc, and maternal surfaces 5. Placental disc, and maternal surfaces 6. Placental disc, and maternal surfaces SJ:rachid 06/10/19 TC:2 CPT: 54542
[2019-06-08] MEDS: Cefazolin 2 GM in 0.9% Normal Saline 100 ML IV (00:15)
--- NOTE | 2019-06-08 00:24 | RAD_ITS ---
STUDY: X-RAY - ABDOMEN/PELVIS REASON FOR EXAM: Female, 24 years old. tool count low abdomen post emergency C section TECHNIQUE: Single AP view of the abdomen / pelvis. COMPARISON: None. FINDINGS: Normal visualized lung bases. There is an unremarkable bowel gas pattern. There is no demonstrated free abdominal air. The visualized liver, spleen and kidneys are grossly normal in size and morphology. Normal soft tissue structures. Normal visualized osseous structures. RAD/Abdomen Single View (Portable) IMPRESSION: Normal x-ray examination of the abdomen and pelvis. Electronically Signed: Ashly Mcneil MD at 1:37 EDT , Service support ,
--- NOTE | 2019-06-08 00:48 | PCM.OPRPT ---
Problem List (1) 38 weeks gestation of Status: Acute (2) Non-reassuring electronic monitoring tracing Status: Acute Delivery Classification: Stat Final DRAKE: 06/22/19 Final DRAKE Source: US <20 weeks Gestational age: 38 Weeks and 0 Days regasification plant operator: Adri Dunn Type of Anesthesia:: Epidural Date of Procedure: 06/08/19 Pre-Operative Diagnosis: 38wga, non-reassuring heart rate tracing Post-Operative Diagnosis: 38wga, non-reassuring heart rate tracing Indications: 24yo G1 @ 38 weeks gestation who presenting with SROM in latent labor. She had a prolonged FHR deceleration persisting despite resuscitative measures and was advised to proceed with emergent section. Indications for : Nonreassuring Status Description of Procedure: The patient was taken to the operating room, placed in dorsal supine position. The abdomen was prepped with betadine splash and draped in sterile fashion. The epidural was found to be adequate. A Pfannensteil incision was made using a scalpel and brought down to incise the subcutaneous tissue and rectus fascia at the midline. Subcutaneous tissue and rectus fascia were bluntly dissected laterally. The rectus muscles were bluntly at the midline. The peritoneum was bluntly entered and . The bladder blade was placed into the abdomen and the vesicouterine peritoneal fold identified. A low transverse hysterotomy was made using the [Metzenbaum scissors]. The hysterotomy was blunty extended cephalad and caudad. The head was elevated to the level of the hysterotomy and the infant delivered revealing vigorous [female] infant. The cord was doubly clamped and cut after 30 seconds. The infant was passed to awaiting [nursery personnel]. The placenta was [expressed] from the uterus and appeared intact on inspection. The uterus was cleared of debris. The hysterotomy was then repaired using 0 Vicryl running lock suture. A second imbricating layer was also placed for additional hemostasis. The bladder blade was removed. The anterior cul-de-sac was cleared of debris. The peritoneum and rectus muscles were reapproximated using 2-0 Vicryl running suture. The rectus fascia was closed using 0 Stratafix. The subcutaneous tissue was reapproximated using 2-0 Vicryl.Abdominal XRay was performed as there was no instrument count prior to the procedure. Abdominal film was negative. The skin was closed using 4-0 Monocryl subcuticularly. A Mepilex occlusive dressing was placed over the incision. The fundus was firm. The patient was then transferred to the recovery room without complication. Sponge, instrument, and needle counts were correct ?2. Patient tolerated the procedure well. Amniotic Membrane Rupture Type: Spontaneous Amniotic Fluid Description: Clear Placenta Disposition: [facility] Drain: Gyu to straight drain Fluids Replaced: 500 ml Cord Entanglement: None Nuchal Cord Compression: Without compression Cord Vessel Description: 3 Vessels Esitmated Blood Loss (ml): 600 ml Gender: Female (1 minute): 7 (5 minute): 9 Delayed cord clamping: Yes Antibiotic Given: Ancef 2 grams IV x1 Pt instructed on risks of surgery: Bleeding, Anesthesia Risks, Infection, Failure Rate of 1 to 2%, Injury to surrounding structure(s) including bowel and bladder - Admit VTE Documentation VTE Present on Admission: No VTE Mechan Device Prophylaxis: SCD's VTE Pharm Prophylaxis ordered?: No
[2019-06-08] MEDS: Oxytocin 30 units/NS 500 ml 30 UNITS/500 ML IV.SOLN 167 UNITS IV (00:55)
[2019-06-08] MEDS: Acetaminophen 325 MG Tablet PO ×2 (02:30→10:35)
[2019-06-08 03:03] LABS: Pathology Specimen OB SEE PATHOLOGY REPORT
[2019-06-08] MEDS: Lactated Ringers 1,000 ML 100 ML IV ×2 (03:46→10:29)
--- NOTE | 2019-06-08 05:10 | NURSING ---
pt has indwelling urinary catheter
[2019-06-08] MEDS: Ketorolac 30 MG/ML Syringe IV ×3 (06:35→18:30)
[2019-06-08] MEDS: Cefazolin 1 GM/50 ML BAG IV ×2 (08:10→15:47)
--- NOTE | 2019-06-08 09:45 | PN.OBGYN_ITS ---
Patient Problems: Active and Suspected Problems (Last Updated 06/07/19 @ 18:[address] Amy Agudelo MD) SROM (spontaneous rupture of membranes) (Acute) 38 weeks gestation of (Acute) Non-reassuring electronic monitoring tracing (Acute) Subjective: Reports she is sore. Denies nausea or vomiting. Not yet out of bed. - Physical Exam Vitals/I&O's: Vital Signs Temp Pulse Resp BP Pulse Ox 97.3 F L 93 18 111/52 L 97 06/09/19 08:00 06/09/19 08:00 06/09/19 08:00 06/09/19 08:00 06/09/19 08:00 Oxygen Flow Rate (L/min) 2 Oxygen Delivery Method Room Air Weight: 83.461 kg Body Mass Index (BMI) 32.5 Intake and Output for Last 24 Hours 06/07/19 06/08/19 06/09/19 23:59 23:59 23:59 Intake Total 1751.67 / 1751.67 1376.67 / 1376.67 Output Total 50 / 50 1525 / 1525 Balance 1701.67 / 1701.67 -148.33 / -148.33 General: Alert, Oriented x3, Cooperative, No apparent distress HEENT: Atraumatic, Normocephalic Lungs: Clear to auscultation, Normal air movement Cardiovascular: Regular rate, Regular Rhythm, Normal S1, Normal S2, No murmurs Abdomen: Bowel Sounds Present, Soft, Non Tender, Non-Distended, - - Incisional dressing c/d/i, fundus firm and nontender at umbilicus Extremities: No edema, No Calf Tenderness Neurological: Neuro grossly intact Psych/Mental Status: Normal Affect, Appropriate, Alert and oriented to time, place, person, mood and affect Laboratory Results 06/09/19 10:12: WBC 17.6 H, RBC 3.52 L, Hgb 10.3 L, Hct 32.7 L, MCV 92.9, MCH 29.3, MCHC 31.5 L, RDW Std Deviation 46.0 H, RDW Coeff of Shaheed 13.6, Plt Count 353, MPV 9.9 Current Medications Acetaminophen (Tylenol) 325 - 650 mg PO Q4H PRN PRN PRN Reason: Pain Score 1-3/10 Last Admin: 06/08/19 10:35 Dose: 650 mg Documented by: Bisacodyl (Dulcolax) 10 mg RECTAL UD PRN PRN Reason: If no BM Hydrocortisone (Hytone) 1 applic TOPICAL TID PRN PRN; Protocol PRN Reason: Discomfort Naloxone HCl 4 mg/ Dextrose 504 mls @ 0 mls/hr IV .Q0M PRN; Protocol PRN Reason: Respiratory depression Ibuprofen (Motrin) 600 mg PO Q6H PRN PRN PRN Reason: Pain Score 1-3/10 Ketorolac Tromethamine (Toradol (Bkc)) 30 mg IV Q6H [facility] Stop: 06/10/19 00:31 Last Admin: 06/09/19 06:23 Dose: 30 mg Documented by: Methylergonovine Maleate (Methergine) 0.2 mg IM X1 PRN PRN Reason: Uterine Atony Naloxone HCl (Narcan) 0.02 mg IV Q1M PRN PRN Reason: RR <10 and pt unresponsive Ondansetron HCl (Zofran) 4 mg IV Q4H PRN PRN PRN Reason: NAUSEA Oxycodone HCl (Oxyir) 5 - 10 mg PO Q4H PRN PRN PRN Reason: Pain Score 4-10/10 Multivit/Folic Acid/Iron (Prenatabs Fa) 1 tablet PO DAILY [facility] Last Admin: 06/09/19 10:00 Dose: 1 tablet Documented by: Prochlorperazine Edisylate (Compazine Iv) 10 mg IV Q6H PRN PRN PRN Reason: NAUSEA Senna/Docusate Sodium (Senokot-S, Monisha-Colace) 1 - 2 tablet PO DAILY PRN PRN Reason: Constipation Simethicone (Mylicon) 80 mg PO PCHS PRN PRN Reason: Indigestion/stomach pain Sodium Chloride () 5 - 15 ml IV UD PRN PRN Reason: SALINE FLUSH Last Admin: 06/09/19 06:25 Dose: 10 ml Documented by: Medical Necessity - Tobacco Use Smoking Status: Light Smoker (<10/day) Assessment/Plan All Active Problems (Last Updated 06/07/19 @ 18:[address] Amy Agudelo MD) SROM (spontaneous rupture of membranes) (Acute) 38 weeks gestation of (Acute) Non-reassuring electronic monitoring tracing (Acute) This is a 24 year-old, G [1], P [1], s/p PLTCS this morning, doing well. OOB later today and d/c domingo. Routine postop care
[2019-06-08] MEDS: Prenatal Vits Tablet 1 TABLET PO (10:30)
[2019-06-08 10:38] LABS: Hematocrit 34.6 % (37-47); Hemoglobin 11.2 g/dL (12.0-15.0); Mean Corp Hgb Conc 32.4 g/dL (32-36); Mean Corpuscular Hgb 29.7 pg (27.0-32.0); Mean Corpuscular Volume 91.8 fL (81-99); Platelet Count 374 K/mm3 (150-450); RBC Distribution Width CV 13.5 % (11.6-14.6); RBC Distribution Width SD 44.9 fl (35.1-43.9); Red Blood Count 3.77 M/mm3 (4.2-5.4); White Blood Count 17.3 K/mm3 (4.4-11.0)
--- NOTE | 2019-06-08 12:30 | CASEMGMT ---
Social Work Assessment Labor and Delivery Unit Date of Referral: 06/08/2019 Date of Intervention: 06/08/2019 Time of Intervention: 12:30P Reason for Referral: HISTORY OF BIPOLAR DISORDER, FIRST TIME MOM History obtained from: MEDICAL RECORD, MOTHER OF BABY (MOB) AND FATHER OF BABY (FOB)-TAMIE MARIN Household composition: MOB, FOB AND FOB?S BROTHER. DELROY STATES RECENTLY HAD TO MOVE IN WITH BROTHER DUE TO FINANCIAL ISSUES DUE TO PANDEMIC. ADDRESS: [address] [place] [address], [place] [id number]. 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 Transportation: MOB AND FOMason REPORT DO NOT DRIVE. DELROY MENDOZA HAS ASSISTANCE WITH TRANSPORTATION FROM HIS BROTHER AND DENIES ANY ISSUES. Programs/Agencies Involved: [facility] [place] Children Services/Legal Issues: SESAR DENIES ANY HISTORY WITH CHILDREN SERVICES. DELROY REPORTS HAS 5 OTHER CHILDREN AND HAS HAD PREVIOUS INVOLVEMENT WITH CHILDREN SERVICES. DELROY STATES ALL CASES HAVE BEEN CLOSED, BUT ACTIVELY STAYS IN CONTACT WITH GAME TECHNICIANSOFYA WITH CHILDREN SERVICES. Behavioral Health Issues: Mental Health History: SESAR REPORTS HISTORY OF BIPOLAR DISORDER NOT TREATED WITH MEDICATION OR COUNSELING. SESAR MENDOZA HAS A SERVICE DOG FOR HER MENTAL HEALTH. DELROY OPENLY DISCUSSED HISTORY WITH ANGER MANAGEMENT. DELROY MENDOZA HAS A COUNSELOR THROUGH THE COUNSELING CENTER. SESAR DENIES ANY CONCERNS FOR SAFETY. Substance Use History: SESAR ADMITS TO HISTORY OF TOBACCO USE AND STATES SMOKES ? A PACK A DAY. SESAR MENDOZA WILL NOT SMOKE AROUND BABY. DELROY REPORTS THEY RESPECT BROTHERS HOME AND MOB SMOKES OUTSIDE. DELROY DISCUSSED HIS OWN HISTORY WITH ALCOHOL ADDICTION. DELROY MENDOZA HAS BEEN IN RECOVERY FOR 10 YEARS. Family/Social Stressors: DELROY DISCUSSED STRESS WITH FINANCES DUE TO PANDEMIC. SUPPORT AND ACTIVE LISTENING PROVIDED. Support Systems: SESAR REPORTS GOOD SUPPORT FROM DELROY AND HIS BROTHER. Depression/Shaken Baby/Safe Sleeping RESOURCES REVIEWED AND EDUCATIONAL INFORMATION PROVIDED. ASSESSMENT: MET WITH MOB AND FOB IN ROOM. INTRODUCED ROLE AND REASON FOR REFERRAL. MOB AND FOB BOTH VERY ATTENTIVE AND ACTIVE IN CARE FOR BABY GIRL, KEILA WHILE THIS WORKER COMPLETING ASSESSMENT. MOB OPENLY DISCUSSED HISTORY OF MENTAL HEALTH AND STATES NOT TREATED WITH MEDICATION OR COUNSELING. SESAR STATES HAS A SERVICE DOG THAT HELPS WITH HER COPING. DELROY WAS VERY FORTHCOMING WITH HIS HISTORY OF ANGER ISSUES AND STATES HAS BEEN IN ANGER MANAGEMENT IN THE PAST. DELROY STATES ALSO FOLLOWS WITH COUNSELING THROUGH THE COUNSELING CENTER. FOB DISCLOSED HIS PAST INVOLVEMENT WITH CHILDREN SERVICES. FOMason REPORTS HAS 5 OTHER CHILDREN (THIS IS FIRST CHILD FOR MOB) AND STATES CASES WITH CHILDREN SERVICES HAVE BEEN CLOSED, BUT STILL ACTIVELY TALKS WITH MENTAL RETARDATION NURSE, SOFYA ?JUST SO THEY KNOW I?M DOING WHAT I?M SUPPOSED TO BE DOING.? MOB AND DELROY REPORT HAVE BEEN TOGETHER FOR 4 YEARS. FOB AND MOB REQUESTED ASSISTANCE IN FILING OUT HOSPITAL PAPERWORK. THIS WORKER ASSISTED AND ANSWERED ALL QUESTIONS. EDUCATION PROVIDED ON HELP ME GROW. BOTH DENY NEED FOR REFERRAL AND STATE HAVE PARENTING CLASSES SCHEDULED WITH THE CENTER. DELROY STATES IF HELP ME GROW WOULD BE NEEDED WOULD UPDATED CHILDREN SERVICES AND HAVE THEM MAKE REFERRAL. DISCUSSED ASSESSMENT WITH NURSING, MOB WITH SOME LACK IN UNDERSTANDING. DUE TO RISK FACTORS NOTED THROUGHOUT ASSESSMENT, THIS WORKER TO FOLLOW UP WITH CHILDREN SERVICES REPORT ON MONDAY. NO CONCERNS WITH DISCHARGE PRIOR TO REPORT TO CHILDREN SERVICES. NURSING UPDATED. PLAN: HOME WITH RESOURCES PROVIDED. No other services requested or indicated. -Tyesha Baldwin, BALL THREAD MACHINE TENDER, MILL SUPERVISOR
[2019-06-08] MEDS: 0.9% Saline Lock 10 ML Syringe IV ×2 (12:55→18:31)
[2019-06-09 00:20] VITALS: BP 115/58; PULSE 86; RESP 16; TEMP 36.6; O2SAT 99
[2019-06-09] MEDS: Ketorolac 30 MG/ML Syringe IV ×4 (00:24→18:30)
[2019-06-09] MEDS: 0.9% Saline Lock 10 ML Syringe IV ×4 (00:24→18:30)
[2019-06-09 04:24] VITALS: BP 110/46; PULSE 81; RESP 16; TEMP 36.4; O2SAT 98
[2019-06-09 08:00] VITALS: BP 111/52; PULSE 93; RESP 18; TEMP 36.3; O2SAT 97
[2019-06-09] MEDS: Prenatal Vits Tablet 1 TABLET PO (10:00)
[2019-06-09 10:21] LABS: Hematocrit 32.7 % (37-47); Hemoglobin 10.3 g/dL (12.0-15.0); Mean Corp Hgb Conc 31.5 g/dL (32-36); Mean Corpuscular Hgb 29.3 pg (27.0-32.0); Mean Corpuscular Volume 92.9 fL (81-99); Mean Platelet Vol. 9.9 fl (6.2-12.0); Platelet Count 353 K/mm3 (150-450); RBC Distribution Width CV 13.6 % (11.6-14.6); Red Blood Count 3.52 M/mm3 (4.2-5.4); White Blood Count 17.6 K/mm3 (4.4-11.0)
--- NOTE | 2019-06-09 11:03 | PCM.PN.OB ---
Patient Problems: Active and Suspected Problems (Last Updated 06/07/19 @ 18:[address] Amy Agudelo MD) SROM (spontaneous rupture of membranes) (Acute) 38 weeks gestation of (Acute) Non-reassuring electronic monitoring tracing (Acute) Subjective: No issues overnight. Voiding and ambulating without difficulty. Passing flatus. Pain controlled. Tolerates PO without nausea or vomiting. Denies heavy lochia. Objective: avss - Physical Exam Vitals/I&O's: Vital Signs Temp Pulse Resp BP Pulse Ox 97.3 F L 93 18 111/52 L 97 06/09/19 08:00 06/09/19 08:00 06/09/19 08:00 06/09/19 08:00 06/09/19 08:00 Oxygen Flow Rate (L/min) 2 Oxygen Delivery Method Room Air Weight: 83.461 kg Body Mass Index (BMI) 32.5 Intake and Output for Last 24 Hours 06/07/19 06/08/19 06/09/19 23:59 23:59 23:59 Intake Total 1751.67 / 1751.67 1376.67 / 1376.67 Output Total 50 / 50 1525 / 1525 Balance 1701.67 / 1701.67 -148.33 / -148.33 General: Alert, Oriented x3, Cooperative, No apparent distress HEENT: Atraumatic, Normocephalic Lungs: Clear to auscultation, Normal air movement Cardiovascular: Regular rate, Regular Rhythm, Normal S1, Normal S2 Abdomen: Bowel Sounds Present, Soft, Non Tender, Non-Distended, - - Incisional dressing c/d/i Extremities: No edema, No Calf Tenderness Neurological: Neuro grossly intact Psych/Mental Status: Normal Affect, Appropriate, Alert and oriented to time, place, person, mood and affect Laboratory Results 06/09/19 10:12: WBC 17.6 H, RBC 3.52 L, Hgb 10.3 L, Hct 32.7 L, MCV 92.9, MCH 29.3, MCHC 31.5 L, RDW Std Deviation 46.0 H, RDW Coeff of Shaheed 13.6, Plt Count 353, MPV 9.9 Current Medications Acetaminophen (Tylenol) 325 - 650 mg PO Q4H PRN PRN PRN Reason: Pain Score 1-3/10 Last Admin: 06/08/19 10:35 Dose: 650 mg Documented by: Bisacodyl (Dulcolax) 10 mg RECTAL UD PRN PRN Reason: If no BM Hydrocortisone (Hytone) 1 applic TOPICAL TID PRN PRN; Protocol PRN Reason: Discomfort Naloxone HCl 4 mg/ Dextrose 504 mls @ 0 mls/hr IV .Q0M PRN; Protocol PRN Reason: Respiratory depression Ibuprofen (Motrin) 600 mg PO Q6H PRN PRN PRN Reason: Pain Score 1-3/10 Ketorolac Tromethamine (Toradol (Bkc)) 30 mg IV Q6H [facility] Stop: 06/10/19 00:31 Last Admin: 06/09/19 06:23 Dose: 30 mg Documented by: Methylergonovine Maleate (Methergine) 0.2 mg IM X1 PRN PRN Reason: Uterine Atony Naloxone HCl (Narcan) 0.02 mg IV Q1M PRN PRN Reason: RR <10 and pt unresponsive Ondansetron HCl (Zofran) 4 mg IV Q4H PRN PRN PRN Reason: NAUSEA Oxycodone HCl (Oxyir) 5 - 10 mg PO Q4H PRN PRN PRN Reason: Pain Score 4-10/10 Multivit/Folic Acid/Iron (Prenatabs Fa) 1 tablet PO DAILY [facility] Last Admin: 06/09/19 10:00 Dose: 1 tablet Documented by: Prochlorperazine Edisylate (Compazine Iv) 10 mg IV Q6H PRN PRN PRN Reason: NAUSEA Senna/Docusate Sodium (Senokot-S, Monisha-Colace) 1 - 2 tablet PO DAILY PRN PRN Reason: Constipation Simethicone (Mylicon) 80 mg PO PCHS PRN PRN Reason: Indigestion/stomach pain Sodium Chloride () 5 - 15 ml IV UD PRN PRN Reason: SALINE FLUSH Last Admin: 06/09/19 06:25 Dose: 10 ml Documented by: Medical Necessity - Tobacco Use Smoking Status: Light Smoker (<10/day) Assessment/Plan All Active Problems (Last Updated 06/07/19 @ 18:[address] Amy Agudelo MD) SROM (spontaneous rupture of membranes) (Acute) 38 weeks gestation of (Acute) Non-reassuring electronic monitoring tracing (Acute) This is a 24 year-old, G [1], P [1], POD#1 s/p PLTCS doing well. -Rh positive -Bottlefeeding -Routine postop care -Plan for d/c home tomorrow
[2019-06-09] MEDS: Senna/Docusate Sodium 1 Tablet PO (12:37)
[2019-06-09 14:06] VITALS: BP 118/52; PULSE 79; RESP 18; TEMP 36.6; O2SAT 99
[2019-06-09] MEDS: oxyCODONE 5 MG Tablet PO (14:12)
[2019-06-09 20:57] VITALS: BP 120/49; PULSE 95; RESP 18; TEMP 36.3; O2SAT 100
[2019-06-10] MEDS: Ketorolac 30 MG/ML Syringe IV (00:28)
[2019-06-10] MEDS: 0.9% Saline Lock 10 ML Syringe IV (00:28)
[2019-06-10 02:39] VITALS: BP 123/65; PULSE 89; RESP 18; TEMP 36.3
--- NOTE | 2019-06-10 07:25 | PCM.PN.OB ---
Patient Problems: Active and Suspected Problems (Last Updated 06/07/19 @ 18:[address] Amy Agudelo MD) SROM (spontaneous rupture of membranes) (Acute) 38 weeks gestation of (Acute) Non-reassuring electronic monitoring tracing (Acute) Subjective: No issues overnight. Had a bowel movement. Pain controlled. No complaints. Objective: AVSS - Physical Exam Vitals/I&O's: Vital Signs Temp Pulse Resp BP Pulse Ox 97.4 F L 89 18 123/65 H 100 06/10/19 02:39 06/10/19 02:39 06/10/19 02:39 06/10/19 02:39 06/09/19 20:57 Oxygen Flow Rate (L/min) 2 Oxygen Delivery Method Room Air Weight: 83.461 kg Body Mass Index (BMI) 32.5 Intake and Output for Last 24 Hours 06/08/19 06/09/19 06/10/19 23:59 23:59 23:59 Intake Total 1376.67 / 1376.67 Output Total 1525 / 1525 Balance -148.33 / -148.33 General: Alert, Oriented x3, Cooperative, No apparent distress HEENT: Atraumatic, Normocephalic Lungs: Clear to auscultation, Normal air movement Cardiovascular: Regular rate, Regular Rhythm, Normal S1, Normal S2 Abdomen: Bowel Sounds Present, Soft, Non Tender, Non-Distended, - - Fundus firm and nontender at umbilicus, incisional dressing c/d/i Extremities: No edema, No Calf Tenderness Neurological: Neuro grossly intact Psych/Mental Status: Normal Affect, Appropriate, Alert and oriented to time, place, person, mood and affect Laboratory Results 06/09/19 10:12: WBC 17.6 H, RBC 3.52 L, Hgb 10.3 L, Hct 32.7 L, MCV 92.9, MCH 29.3, MCHC 31.5 L, RDW Std Deviation 46.0 H, RDW Coeff of Shaheed 13.6, Plt Count 353, MPV 9.9 Current Medications Acetaminophen (Tylenol) 325 - 650 mg PO Q4H PRN PRN PRN Reason: Pain Score 1-3/10 Last Admin: 06/08/19 10:35 Dose: 650 mg Documented by: Bisacodyl (Dulcolax) 10 mg RECTAL UD PRN PRN Reason: If no BM Hydrocortisone (Hytone) 1 applic TOPICAL TID PRN PRN; Protocol PRN Reason: Discomfort Naloxone HCl 4 mg/ Dextrose 504 mls @ 0 mls/hr IV .Q0M PRN; Protocol PRN Reason: Respiratory depression Ibuprofen (Motrin) 600 mg PO Q6H PRN PRN PRN Reason: Pain Score 1-3/10 Methylergonovine Maleate (Methergine) 0.2 mg IM X1 PRN PRN Reason: Uterine Atony Naloxone HCl (Narcan) 0.02 mg IV Q1M PRN PRN Reason: RR <10 and pt unresponsive Ondansetron HCl (Zofran) 4 mg IV Q4H PRN PRN PRN Reason: NAUSEA Oxycodone HCl (Oxyir) 5 - 10 mg PO Q4H PRN PRN PRN Reason: Pain Score 4-10/10 Last Admin: 06/09/19 14:12 Dose: 10 mg Documented by: Multivit/Folic Acid/Iron (Prenatabs Fa) 1 tablet PO DAILY GHANSHYAM Last Admin: 06/09/19 10:00 Dose: 1 tablet Documented by: Prochlorperazine Edisylate (Compazine Iv) 10 mg IV Q6H PRN PRN PRN Reason: NAUSEA Senna/Docusate Sodium (Senokot-S, Monisha-Colace) 1 - 2 tablet PO DAILY PRN PRN Reason: Constipation Last Admin: 06/09/19 12:37 Dose: 2 tablet Documented by: Simethicone (Mylicon) 80 mg PO PCHS PRN PRN Reason: Indigestion/stomach pain Sodium Chloride () 5 - 15 ml IV UD PRN PRN Reason: SALINE FLUSH Last Admin: 06/10/19 00:28 Dose: 10 ml Documented by: Medical Necessity - Tobacco Use Smoking Status: Light Smoker (<10/day) Assessment/Plan All Active Problems (Last Updated 06/07/19 @ 18:[address] Amy Agudelo MD) SROM (spontaneous rupture of membranes) (Acute) 38 weeks gestation of (Acute) Non-reassuring electronic monitoring tracing (Acute) This is a 24 year-old, G [1], P [1], POD#2 s/p PLTCS, doing well. -Rh positive -Routine postop care -d/c home today
--- NOTE | 2019-06-10 07:28 | DCINST_ITS ---
Discharge Diet: No Restrictions Discharge Activity: Return to Normal Activity, May not drive while taking narcotic pain medications., May Shower, - - No tub bath for 1-2 weeks May resume sexual activity in: 4-6 weeks Lifting Restrictions: 10-20 lb Call your doctor if your incision/area has: Continuous Slow Oozing, Sudden Increased Bleeding, Increased Pain/ Swelling, Increased Redness, Foul Smelling Discharge Suture Line Care: Avoid Pulling/Pushing Remove Dressing in (days):: 2 Cleanse incision/area with: Soap & Water Additional Instructions: If you experience any of the following, contact your healthcare provider. * Bleeding that soaks a pad every hour for 2 hours * Fever 100.4 or higher * Unrelieved incision or abdominal pain * Swelling, redness, discharge or bleeding from your incision or episiotomy site * Your incision begins to separate * Problems urinating (including inability to urinate or burning while urinating). * Visual changes * Severe headache * Flu-like symptoms * Pain or redness in one of both of your breasts * Pain, warmth, tenderness or swelling in your legs, especially the calf area * Frequent nausea and vomiting * Symptoms of depression or anxiety If you experience any of the following, call 911 or go to the nearest Emergency Room. * Chest pain * Problems breathing * Seizure activity * Partial or complete paralysis of a body part, slurred speech, weakness or drooping of the face, or a sudden inability to walk or hold your balance Allergies/Adverse Reactions: Allergies No Known Allergies Allergy (Verified 06/07/19 16:14) Medications to take at Discharge Vits [Prenatabs FA ] 1 tab PO DAILY 06/07/19 Ibuprofen [Motrin] 600 mg PO Q8H PRN PRN 7 Days #30 tab 06/09/19 Oxycodone [Oxyir] 1 - 2 tab PO Q6H PRN PRN 7 Days #20 tab 06/09/19 Senna/Docusate Sodium [Senokot-S] 1 - 2 tab PO DAILY PRN #60 tab 06/09/19 The following prescriptions were given: Ibuprofen [Motrin] 600 mg PO Q8H PRN PRN 7 Days #30 tab PRN Reason: pain Transmission Status: Received by [email or web address] Oxycodone [Oxyir] 1 - 2 tab PO Q6H PRN PRN 7 Days #20 tab PRN Reason: Pain Score 4-10/10 Prescription Printed Senna/Docusate Sodium [Senokot-S] 1 - 2 tab PO DAILY PRN #60 tab PRN Reason: Constipation Transmission Status: Received by [email or web address] Follow-Up: Call to make an appointment with your doctor for an incision check in 1-2 weeks. You will also need a 6 week post- follow up appointment. Test results from this visit will be discussed in further detail at your follow- up appointment, if applicable. Please Follow Up With: Amy Agudelo MD - incision check When: 1-2 weeks Please Follow Up With: Anita Murphy CNM - visit When: 6 weeks Primary Care Physician: Care Physician,No Primary [Primary Care Provider] -
--- NOTE | 2019-06-10 07:30 | DS.PCM_ITS ---
Discharge Date and Diagnosis - Problem List Patient Problems: Active and Suspected Problems (Last Updated 06/07/19 @ 18:[address] Amy Agudelo MD) SROM (spontaneous rupture of membranes) (Acute) 38 weeks gestation of (Acute) Non-reassuring electronic monitoring tracing (Acute) Date of Admission: 06/07/19 Date of Discharge: 06/10/19 - Primary Discharge Diagnosis Active and Suspected Problems (Last Updated 06/07/19 @ 18:[address] Amy Agudelo MD) SROM (spontaneous rupture of membranes) (Acute) 38 weeks gestation of (Acute) Non-reassuring electronic monitoring tracing (Acute) Hospital Course and Treatment Consultations 06/07/19 17:19 Consult: Anesthesia Routine Comment: Reason For Exam: Labor Operations: - - section Procedures: None Summary of Care Provided: The patient is a 24 year old F 1 admitted at 37 6/7wga with SROM in latent labor at 2cm. She progressed to 4cm dilation spontaneously amid periodic prolonged decelerations. She had a prolonged deceleration that did not recover with intrauterine resuscitative measures and underwent an emergent section. Her postop course was uncomplicated and she was discharged to home on postop day #2. Patient Problems: Active and Suspected Problems (Last Updated 06/07/19 @ 18:[address] Amy Agudelo MD) SROM (spontaneous rupture of membranes) (Acute) 38 weeks gestation of (Acute) Non-reassuring electronic monitoring tracing (Acute) - Physical Exam Vitals/I&O's: Vital Signs Temp Pulse Resp BP Pulse Ox 97.4 F L 89 18 123/65 H 100 06/10/19 02:39 06/10/19 02:39 06/10/19 02:39 06/10/19 02:39 06/09/19 20:57 Oxygen Flow Rate (L/min) 2 Oxygen Delivery Method Room Air Weight: 83.461 kg Body Mass Index (BMI) 32.5 Intake and Output for Last 24 Hours 06/08/19 06/09/19 06/10/19 23:59 23:59 23:59 Intake Total 1376.67 / 1376.67 Output Total 1525 / 1525 Balance -148.33 / -148.33 Laboratory Results 06/09/19 10:12: WBC 17.6 H, RBC 3.52 L, Hgb 10.3 L, Hct 32.7 L, MCV 92.9, MCH 29.3, MCHC 31.5 L, RDW Std Deviation 46.0 H, RDW Coeff of Shaheed 13.6, Plt Count 353, MPV 9.9 Current Medications Acetaminophen (Tylenol) 325 - 650 mg PO Q4H PRN PRN PRN Reason: Pain Score 1-3/10 Last Admin: 06/08/19 10:35 Dose: 650 mg Documented by: Bisacodyl (Dulcolax) 10 mg RECTAL UD PRN PRN Reason: If no BM Hydrocortisone (Hytone) 1 applic TOPICAL TID PRN PRN; Protocol PRN Reason: Discomfort Naloxone HCl 4 mg/ Dextrose 504 mls @ 0 mls/hr IV .Q0M PRN; Protocol PRN Reason: Respiratory depression Ibuprofen (Motrin) 600 mg PO Q6H PRN PRN PRN Reason: Pain Score 1-3/10 Methylergonovine Maleate (Methergine) 0.2 mg IM X1 PRN PRN Reason: Uterine Atony Naloxone HCl (Narcan) 0.02 mg IV Q1M PRN PRN Reason: RR <10 and pt unresponsive Ondansetron HCl (Zofran) 4 mg IV Q4H PRN PRN PRN Reason: NAUSEA Oxycodone HCl (Oxyir) 5 - 10 mg PO Q4H PRN PRN PRN Reason: Pain Score 4-10/10 Last Admin: 06/09/19 14:12 Dose: 10 mg Documented by: Multivit/Folic Acid/Iron (Prenatabs Fa) 1 tablet PO DAILY GHANSHYAM Last Admin: 06/09/19 10:00 Dose: 1 tablet Documented by: Prochlorperazine Edisylate (Compazine Iv) 10 mg IV Q6H PRN PRN PRN Reason: NAUSEA Senna/Docusate Sodium (Senokot-S, Monisha-Colace) 1 - 2 tablet PO DAILY PRN PRN Reason: Constipation Last Admin: 06/09/19 12:37 Dose: 2 tablet Documented by: Simethicone (Mylicon) 80 mg PO PCHS PRN PRN Reason: Indigestion/stomach pain Sodium Chloride () 5 - 15 ml IV UD PRN PRN Reason: SALINE FLUSH Last Admin: 06/10/19 00:28 Dose: 10 ml Documented by: Discharge Diet: No Restrictions Discharge Activity: Return to Normal Activity, May not drive while taking narcotic pain medications., May Shower, - - No tub bath for 1-2 weeks May resume sexual activity in: 4-6 weeks Call your doctor if your incision/area has: Continuous Slow Oozing, Sudden Increased Bleeding, Increased Pain/ Swelling, Increased Redness, Foul Smelling Discharge Call your doctor if you observe: Fever of 101 or Higher, Inability to urinate, Inability to have a bowel movement, Using more than one pad per hour, Shortness of breath, Chest pain, Calf discomfort, Uncontrolled pain Suture Line Care: Avoid Pulling/Pushing Remove Dressing in (days):: 2 Cleanse incision/area with: Soap & Water Home Medications: Medications to take at Discharge Vits [Prenatabs FA ] 1 tab PO DAILY 06/07/19 Ibuprofen [Motrin] 600 mg PO Q8H PRN PRN 7 Days #30 tab 06/09/19 Oxycodone [Oxyir] 1 - 2 tab PO Q6H PRN PRN 7 Days #20 tab 06/09/19 Senna/Docusate Sodium [Senokot-S] 1 - 2 tab PO DAILY PRN #60 tab 06/09/19 Following Prescrptions Were Given to Patient: Ibuprofen [Motrin] 600 mg PO Q8H PRN PRN 7 Days #30 tab PRN Reason: pain Transmission Status: Received by [email or web address] Oxycodone [Oxyir] 1 - 2 tab PO Q6H PRN PRN 7 Days #20 tab PRN Reason: Pain Score 4-10/10 Prescription Printed Senna/Docusate Sodium [Senokot-S] 1 - 2 tab PO DAILY PRN #60 tab PRN Reason: Constipation Transmission Status: Received by [email or web address] Primary Care Physician: Care Physician,No Primary [Primary Care Provider] - Please Follow Up With: Amy Agudelo MD - incision check When: 1-2 weeks Please Follow Up With: Anita Murphy CNM - visit When: 6 weeks Medical Necessity - Tobacco Use Smoking Status: Light Smoker (<10/day) Meaningful Use Info Meaningful Use Diagnoses (Choose all that apply): None applicable
[2019-06-10 08:15] VITALS: BP 114/51; PULSE 82; RESP 18; TEMP 36.6; O2SAT 98
--- NOTE | 2019-06-10 09:33 | NURSING ---
Patient and FOB in a hurry to be discharged. FOB received multiple phone calls during discharge education. Patient seems distracted by phone calls during education. Nods her head in agreement during my teaching, but during teach back, did not seem to retain education. Reinforced education that patient could not repeat back. DELROY seems comfortable with education as he has had other children, but states he works 16-hour days and goes back to work today. Nelly in social work notified.
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
== END 2019-06-10 09:55 | disposition home or self-care (01) | DRG 540 ==
LOC: WPOUT 15:58 → WP 16:02
PROVIDERS: Admitting Provider Obstetrics & Gynecology; Referring Provider Obstetrics & Gynecology; Visit Provider Obstetrics & Gynecology
DX: O76 Abnormality in fetal heart rate and rhythm complicating labor and delivery (principal); Z37.0 Single live birth; Z3A.38 38 weeks gestation of pregnancy; F17.200 Nicotine dependence, unspecified, uncomplicated; O99.334 Smoking (tobacco) complicating childbirth
CPT/HCPCS: 59025; 59050; 74018; 84112; 85025; 85027; 86850; 86900; 86901; 88307; 99218; J7120; A4216; G0378

== ENCOUNTER → 2019-12-23 13:37 | Outpatient (CLI) | payer MEDICAID, SELFPAY ==
[2019-06-07 16:13] VITALS: BMI 32.5
[2019-12-23 15:45] LABS: Color, Urine Yellow (Yellow); Glucose, Dipstick Normal (Normal); Ketone-Dipstick 5 mg/dl (Negative); Leukocyte Esterase-Dipstick 100 /ul (Negative); Nitrite-Dipstick Negative (Negative); Occult Blood-Urine 10 /ul (Negative); Protein-Dipstick 30 mg/dl (Negative); Urine Bilirubin Dipstick Negative (Negative); Urine Clarity Sl. Cloudy (Clear); Urine Urobilinogen 1 mg/dl (Normal)
[2019-12-23 15:46] LABS: Absolute Lymphocyte Count 3.46 X10^3/uL (0.83-4.51); Absolute Neutrophil Count 13.3 X10^3/uL (2.0-7.7); Basophil# 0.03 X10^3/uL; Basophil% 0.2 % (0-1); Eosinophil# 0.09 X10^3/uL; Eosinophils% 0.5 % (0-5); Hematocrit 39.3 % (37-47); Hemoglobin 12.5 g/dL (12.0-15.0); Lymphocyte # 3.46 X10^3/ul (4.0); Lymphocyte % 19.2 % (19-41); Mean Corp Hgb Conc 31.8 g/dL (32-36); Mean Corpuscular Volume 91.2 fL (81-99); Monocyte# 0.97 X10^3/uL; Monocyte% 5.4 % (0-10); NRBC Flagged by Analyzer 0 % (0-5); Neutrophil # 13.33 X10^3/uL (2.7-7.7); Neutrophil % 73.7 % (47-70); Platelet Count 367 K/mm3 (150-450); RBC Distribution Width CV 14.4 % (11.6-14.6); RBC Distribution Width SD 48.1 fl (35.1-43.9); Red Blood Count 4.31 M/mm3 (4.2-5.4); White Blood Count 18.1 K/mm3 (4.4-11.0)
[2019-12-24 09:03] LABS: HIV - WCH Non-Reactive (Nonreactive); Hepatitis B Surface Antigen Non-Reactive (Nonreactive); Hepatitis C Antibody Non-Reactive (Nonreactive); Rubella IgG Reactive (Nonreactive)
[2019-12-26 02:11] LABS: Prenatal RPR NONREACTIVE (NONREACTIVE)
[2019-12-26 07:07] LABS: Chlamydia By Nucleic Acid AMP Negative (Negative)
[2019-12-26 08:43] LABS: Gonococcus By Nucleic Acid AMP Negative (Negative)
[2019-12-31 22:17] LABS: HPV Reflexed? NOT INDICATED
== END ==
PROVIDERS: Visit Provider Obstetrics & Gynecology
DX: Z34.82 Encounter for supervision of other normal pregnancy, second trimester (principal); Z12.4 Encounter for screening for malignant neoplasm of cervix; Z11.3 Encounter for screening for infections with a predominantly sexual mode of transmission
CPT/HCPCS: 36415; 81002; 85025; 86703; 86762; 86803; 87086; 87088; 87340; 87491; 87591; 88175; G0145

== ENCOUNTER → 2020-01-14 11:47 | Outpatient (CLI) | payer MEDICAID, SELFPAY ==
[2019-06-07 16:13] VITALS: BMI 32.5
[2020-01-14 13:42] LABS: Glucose Challenge Gest 1H 50g 126 mg/dL (70-140)
[2020-01-14 13:44] LABS: Hemoglobin 12.3 g/dL (12.0-15.0); Mean Corp Hgb Conc 32.4 g/dL (32-36); Mean Corpuscular Hgb 29.4 pg (27.0-32.0); Mean Corpuscular Volume 90.9 fL (81-99); Mean Platelet Vol. 10.6 fl (6.2-12.0); Platelet Count 406 K/mm3 (150-450); RBC Distribution Width CV 13.9 % (11.6-14.6); RBC Distribution Width SD 45.9 fl (35.1-43.9); Red Blood Count 4.18 M/mm3 (4.2-5.4); White Blood Count 15.3 K/mm3 (4.4-11.0)
== END ==
PROVIDERS: Visit Provider Obstetrics & Gynecology
DX: Z34.83 Encounter for supervision of other normal pregnancy, third trimester (principal)
CPT/HCPCS: 36415; 82950; 85027

== ENCOUNTER → 2020-04-17 | Outpatient (CLI) | payer MEDICAID, SELFPAY ==
[2019-06-07 16:13] VITALS: BMI 32.5
== END | disposition home or self-care (01) ==
LOC: LABSPEC 16:17
PROVIDERS: Visit Provider Obstetrics & Gynecology
DX: Z36.85 Encounter for antenatal screening for Streptococcus B (principal)
CPT/HCPCS: 87081

== ENCOUNTER 2020-04-20 15:50 | Outpatient (CLI) | payer MEDICAID, SELFPAY ==
[2019-06-07 16:13] VITALS: BMI 32.5
[2020-04-20 16:28] VITALS: TEMP 36.3
[2020-04-20 16:32] VITALS: BP 122/65; PULSE 102; TEMP 36.3; O2SAT 99
[2020-04-20 16:33] VITALS: BP 122/65; PULSE 101
[2020-04-20 16:38] VITALS: BMI 37.0
--- NOTE | 2020-04-20 17:38 | OB.TRI.NOTE ---
History of Present Illness Date of Service: 04/20/20 Was patient seen by the physician?: Yes Reason For Visit: R/O LABOR Date of Service: 04/20/20 Final DRAKE: 05/03/20 Final DRAKE Source: US <20 weeks Gestational age: 38 Weeks and 1 Days History of Present Illness: Patient with contractions that are much improved from office visit. Patient uncomfortable in bed. Denies headache, visual changes, nausea vomiting, chest pain, shortness of breath, right upper quadrant pain. Patient states good movement. Allergies No Known Allergies Allergy (Verified 06/07/19 16:14) - Pertinent Past Medical History Medical History: Past Medical History (Last Updated 06/07/19 @ 18:[address] Amy Tubbs MD) Bipolar disorder Surgical History: Past Surgical History (Last Updated 06/07/19 @ 18:[address] Amy Tubbs MD) H/O wisdom tooth extraction Review of Systems Constitutional: Denies: Chills, Fever, Weight Change HEENT: Denies: Head Aches, Sinus Congestion, Sinus Drainage Cardiovascular: Denies: Chest Pain, Palpitations Respiratory: Denies: Cough, Shortness of breath at rest, Sputum production Gastrointestinal: Denies: Abdominal Pain, Nausea, Vomiting Genitourinary: Denies: Dysuria Gynecological: Denies: Vaginal bleeding Musculoskeletal: Denies: Joint Pain, Joint Tenderness Skin: Denies: Rash, Wounds Neurological: Denies: Numbness, Tingling, Focal weakness Psychiatric: Denies: Anxiety, Depression, Homicidal Ideations, Suicidal Ideations Hematologic/ Lymphatic: Denies: Easy Bruising, Easy Bleeding Physical Exam Vitals: Vital Signs Temp Pulse BP Pulse Ox 97.3 F L 101 H 122/65 H 99 04/20/20 16:32 04/20/20 16:33 04/20/20 16:33 04/20/20 16:32 General: Alert, Oriented x3, Cooperative, No apparent distress HEENT: Atraumatic, PERRLA, Normocephalic Abdomen: Soft, Non Tender, - - Gravid Extremities:: No clubbing, No cyanosis, No edema Neurological: Neuro grossly intact 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 Negative for: Vulvar lesions Cervix Dilation (cm): 1 Station: -3 Effacement (%): 40 NST - FHR Rate Baby A Baseline: 130 Variability:: Moderate Accelerations:: 15 x 15 Decelerations:: None NST Reactive:: Yes Uterine Activity:: Few contractions Impression/Plan 25-year-old G2, P1 at 38 weeks and 1 day arrived in office with contractions found to be 1 cm. Sent to triage for extended monitoring and repeat cervical exam. Cervical exam unchanged heart tones reassuring. No signs of labor. Reviewed findings with patient and FOB. Blood pressure elevated in office within normal limits here. Patient to follow-up for repeat section on 04/27/2020. Discussed signs and symptoms of labor, okay to discharge home
== END 2020-04-20 17:45 | disposition home or self-care (01) ==
LOC: WPOUT 16:14 → WP 16:15
PROVIDERS: Referring Provider Obstetrics & Gynecology; Visit Provider Obstetrics & Gynecology
DX: O62.9 Abnormality of forces of labor, unspecified (principal); O99.343 Other mental disorders complicating pregnancy, third trimester; F31.9 Bipolar disorder, unspecified; Z3A.38 38 weeks gestation of pregnancy
CPT/HCPCS: 59025; 59050; 99218; G0378

== ENCOUNTER → 2020-04-24 | Outpatient (CLI) | payer MEDICAID, SELFPAY ==
[2019-06-07 16:13] VITALS: BMI 32.5
== END | disposition home or self-care (01) ==
LOC: LABSPEC 14:50
PROVIDERS: Referring Provider Obstetrics & Gynecology; Visit Provider Obstetrics & Gynecology
DX: Z03.818 Encounter for observation for suspected exposure to other biological agents ruled out (principal)
CPT/HCPCS: 87635; C9803; U0005; U0003

== ENCOUNTER 2020-04-27 05:00 | Inpatient (IN) | payer MEDICAID, SELFPAY ==
[2020-04-27] VITALS (21 sets, daily range): BP systolic 90–125; BP diastolic 42–70; PULSE 70–98; RESP 16–18; TEMP 36.1–36.6; O2SAT 95–98; BMI 36.2
--- NOTE | 2020-04-27 | FALS_PTH ---
PATIENT: KAYLA ROSA LOC: [facility] U#:[id number] AGE/SX: 25/F ROOM: WP006 RE04/27/[address]: Dr. Alvarez Albrigth MD : 1995 BED: 1 DIS: 04/28/2020 SPEC #: [id number] RECD: 04/27/20 12:48 STATUS: ZENAIDA REJani #: [id number] ROSARIO: 04/27/20 00:[address]: Alvarez Albright DEPT: SURGICAL PATHOLOGY RECD BY: Julio Cesar Segura ENTERED: 04/27/20 12:49 SP TYPE: FALL TUBES OTHR DR: No Primary Care Phys Tissues: Fallopian tube Procedures: Surgery Specimen Level II HEADER OPERATION: Tubal ligation PRE-OP DIAGNOSIS: Sterilization TISSUE SUBMITTED: Fallopian tubes, left tube has stitch MICROSCOPIC DIAGNOSIS Bilateral fallopian tubes, salpingectomy: Bilateral fallopian tubes including fimbrial ends, no pathologic diagnosis. ARTURO:rachid 04/28/2020 MICROSCOPIC DESCRIPTION Slides are reviewed. GROSS DESCRIPTION Received in fixative is one container labeled with the patient's name and designated bilateral fallopian tubes, left tube with stitch. The specimen consists of bilateral fallopian tubes including fimbrial ends. The right fallopian tube measures 5.5 cm in length and 0.6 cm in diameter and the left fallopian tube measures 5 cm in length and 0.5 cm in diameter. Sections reveal unremarkable cut surfaces. The fimbrial end on the left fallopian tube is very small. Inseam Trimmer sections are submitted in two cassettes as follows: 1 - right fallopian, 2 - left fallopian tube. / SJ:rg 04/27/20 TC:4 CPT: 61531 x2
[2020-04-27] MEDS: Lactated Ringers 1,000 ML 999 ML IV (05:18)
[2020-04-27 05:28] LABS: Absolute Lymphocyte Count 3.73 X10^3/uL (0.83-4.51); Absolute Neutrophil Count 10.1 X10^3/uL (2.0-7.7); Basophil# 0.04 X10^3/uL; Basophil% 0.3 % (0-1); Eosinophil# 0.06 X10^3/uL; Eosinophils% 0.4 % (0-5); Hematocrit 40.9 % (37-47); Lymphocyte # 3.73 X10^3/ul (4.0); Lymphocyte % 25.2 % (19-41); Mean Corp Hgb Conc 31.8 g/dL (32-36); Mean Corpuscular Hgb 28.3 pg (27.0-32.0); Mean Corpuscular Volume 88.9 fL (81-99); Mean Platelet Vol. 9.1 fl (6.2-12.0); Monocyte# 0.86 X10^3/uL; Monocyte% 5.8 % (0-10); NRBC Flagged by Analyzer 0 % (0-5); Neutrophil # 10.09 X10^3/uL (2.7-7.7); Platelet Count 474 K/mm3 (150-450); RBC Distribution Width CV 13.9 % (11.6-14.6); White Blood Count 14.8 K/mm3 (4.4-11.0)
[2020-04-27] MEDS: Acetaminophen 500 MG Tablet 1000 MG PO ×3 (05:50→17:50)
[2020-04-27 06:13] LABS: Amphetamine Urine VISTA NEGATIVE (<1000 ng/mL); Barbiturate Urine VISTA NEGATIVE (< 200 ng/mL); Benzodiazepine Urine VISTA NEGATIVE (< 200 ng/mL); Cocaine Urine VISTA NEGATIVE (< 300 ng/mL); Ecstacy Urine VISTA NEGATIVE (< 500 ng/mL); Methadone Urine VISTA NEGATIVE (< 300 ng/mL); PCP Urine VISTA NEGATIVE (< 25 ng/mL); THC Urine VISTA NEGATIVE (< 50 ng/mL); Vista UDS pH Range 5
[2020-04-27] MEDS: Lactated Ringers 1,000 ML 150 ML IV (06:24)
[2020-04-27] MEDS: Sodium Citrate/Citric Acid 30 ML UDC PO (07:12)
--- NOTE | 2020-04-27 07:13 | PCM.HPOB.BLA ---
History and Physical Chief complaint: Repeat section and bilateral tubal ligation History of present illness: 25 old G2, P1 at 39 weeks and 1 day with DRAKE: 05/03/2020 by LMP arrives for repeat section and bilateral tubal ligation. Denies headache, visual changes, nausea vomiting, chest pain, shortness of breath, right upper quadrant pain. Patient states good movement. Obstetric history G1: 38-week for failure to progress 06/07/2019 female G2: Current Past medical history: Asthma Medications: vitamin Allergies: No known drug allergies Past surgical history: section, wisdom teeth extraction Social history: 1 pack/day smoker, no drug use, denies alcohol use Family history: Denies history of DVT or PE Review of systems: Besides the above pertinent positives a full review of systems was performed and found to be negative Physical exam: Vital Signs Temp Pulse Resp BP Pulse Ox 04/27/20 05:51 97.6 F L 98 18 125/70 H 96 General: Normal-appearing no acute distress HEENT: Normocephalic atraumatic no cervical lymphadenopathy Cardiac/respiratory: Nonlabored breathing, no use of accessory muscles Abdomen: Soft, nontender, gravid Extremities: No peripheral edema normal peripheral pulses Neurology: Grossly intact Psych: Normal affect normal demeanor nonpressured speech Mom's Labs & Results 04/27/20 04/27/20 04/27/20 05:15 05:18 05:18 WBC 14.8 H RBC 4.60 Hgb 13.0 Hct 40.9 MCV 88.9 MCH 28.3 MCHC 31.8 L RDW Std Deviation 45.0 H RDW Coeff of Shaheed 13.9 Plt Count 474 H MPV 9.1 Immature Gran % (Auto) 0.300 Neut % (Auto) 68.0 Lymph % (Auto) 25.2 [place] % (Auto) 5.8 Eos % (Auto) 0.4 Baso % (Auto) 0.3 Absolute Neuts (auto) 10.1 H Absolute Lymphs (auto) 3.73 Nucleated RBC % 0 Urine Opiates Screen NEGATIVE Urine Methadone Screen NEGATIVE Ur Barbiturates Screen NEGATIVE Ur Phencyclidine Scrn NEGATIVE Ur Amphetamines Screen NEGATIVE U Methamphetamin-MDMA NEGATIVE U Benzodiazepines Scrn NEGATIVE Urine Cocaine Screen NEGATIVE U Cannabinoids Screen NEGATIVE Ur Drug Screen Comment Blood Type A POSITIVE Antibody Screen NEGATIVE Labs Blood Type: A RH: POSITIVE RPR/VDRL/Syphilis Nonreactive Rubella status Immune HbSAg Negative Date Done: 12/23/19 Chlamydia Negative Gonorrhea Negative HIV/AIDS Non-Reactive Group B Strep: Negative Assessment and plan: 25-year-old G2, P1 at 39 weeks and 1 day for repeat section bilateral tubal ligation -[facility]mit [facility] -2 g Ancef -CEFM -Routine orders -Anesthesia to see
[2020-04-27] MEDS: Cefazolin 2 GM in 0.9% Normal Saline 100 ML IV (07:30)
--- NOTE | 2020-04-27 08:18 | OP.PCM_ITS ---
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 Normal uterus, tubes, and ovaries. Consent: Patient with a history of section and desires permanent sterilization in need of repeat section and bilateral tubal ligation. Patient understands the risk of the procedure include but are not limited to visceral or vascular injury, prolonged hospitalization, blood loss and need for transfusion, reoperation. Patient state understanding wish to proceed. All questions are answered consent was signed. Procedure: Patient was brought back to the OR where spinal anesthesia found be adequate. 2 g of Ancef were given for infection prophylaxis. Patient was prepared and draped in a dorsal supine position with leftward tilt. A Pfannenstiel incision was made the skin with a scalpel. The incision was carried down to the fascia with a scalpel. The fascia was excised and extended laterally. Inferior aspect of the fascia was grasped with a clamp and the underlying rectus and pyramidalis muscle were dissected off sharply with Carcamo scissors. In a similar fashion superior aspect of the fascia was grasped with a clamp and the underlying rectus muscle dissected off sharply. Rectus was dissected at the midline down to the level of pubic symphysis. Peritoneum was entered bluntly. Peritoneum was extended superiorly and inferiorly with good visualization of bladder. Bladder blade was inserted and vesicouterine peritoneum was identified. Low transverse hysterotomy was made. Hand was placed into the cavity and gentle fundal pre ssure was applied once the head was brought into the incision and the bladder blade was removed. Head and shoulders were delivered with ease. Cord was cut and clamped. Baby is handed off to nursing. Uterus was exteriorized and above findings were noted. Uterus was closed in continuous running fashion. Second layer was performed. Right fallopian tube was identified out to the fimbriae and using a LigaSure the mesosalpinx was cut and cauterized. Fallopian tube to pathology. Left fallopian tube was identified out to the fimbriae and using a LigaSure device mesosalpinx was cut and cauterized. Sent to pathology. Uterine incision with good hemostasis. Uterus was placed back into the abdominal cavity. Incision was reinspected. Good hemostasis was noted. Muscle was closed with mattress sutures. Fascia was closed in continuous running fashion. Skin was closed in a subcuticular fashion. All counts correct x2. Patient tolerated procedure well was brought to recovery in stable condition.
--- NOTE | 2020-04-27 08:25 | DCINST_ITS ---
Discharge Diet: No Restrictions Discharge Activity: Return to Normal Activity, May Drive, May not drive while taking narcotic pain medications., May Shower, - - No tub baths for 2 weeks May resume sexual activity in: 4-6 weeks Lifting Restrictions: No lifting over 25 pounds for 2 weeks Call your doctor if your incision/area has: Continuous Slow Oozing, Foul Smelling Discharge Call your doctor if you observe: Fever of 101 or Higher, Shortness of breath, Chest pain Additional Instructions: If you experience any of the following, contact your healthcare provider. * Bleeding that soaks a pad every hour for 2 hours * Fever 100.4 or higher * Unrelieved incision or abdominal pain * Swelling, redness, discharge or bleeding from your incision or episiotomy site * Your incision begins to separate * Problems urinating (including inability to urinate or burning while urinating). * Visual changes * Severe headache * Flu-like symptoms * Pain or redness in one of both of your breasts * Pain, warmth, tenderness or swelling in your legs, especially the calf area * Frequent nausea and vomiting * Symptoms of depression or anxiety If you experience any of the following, call 911 or go to the nearest Emergency Room. * Chest pain * Problems breathing * Seizure activity * Partial or complete paralysis of a body part, slurred speech, weakness or drooping of the face, or a sudden inability to walk or hold your balance Allergies/Adverse Reactions: Allergies No Known Allergies Allergy (Verified 04/27/20 05:17) Medications to take at Discharge Vits [Prenatabs FA ] 1 tab PO DAILY 06/07/19 Oxycodone [Oxyir] 5 mg PO Q6H PRN PRN 4 Days #16 tablet 04/28/20 The following prescriptions were given: Oxycodone [Oxyir] 5 mg PO Q6H PRN PRN 4 Days #16 tablet PRN Reason: Pain Score 4-10 Transmission Status: Sent to [facility]30 Follow-Up: Call to make an appointment with your doctor for an incision check in 1-2 weeks. You will also need a 6 week post- follow up appointment. Test results from this visit will be discussed in further detail at your follow- up appointment, if applicable. Please Follow Up With: Alvarez Albright MD When: 2 weeks postoperative visit. 4 to 6 weeks visit Primary Care Physician: Care Physician,No Primary [Primary Care Provider] -
[2020-04-27 08:43] LABS: Pathology Specimen OB SEE PATHOLOGY REPORT
[2020-04-27] MEDS: Oxytocin 30 units/NS 500 ml 30 UNITS/500 ML IV.SOLN 167 UNITS IV (09:05)
[2020-04-27] MEDS: Ketorolac 30 MG/ML Syringe IV ×3 (09:06→21:07)
[2020-04-27] MEDS: Lactated Ringers 1,000 ML 100 ML IV (12:34)
[2020-04-27] MEDS: 0.9% Saline Lock 10 ML Syringe IV (21:07)
[2020-04-27] MEDS: Enoxaparin 40 MG/0.4 ML Syringe SC (21:16)
[2020-04-28] MEDS: Acetaminophen 500 MG Tablet 1000 MG PO ×2 (00:05→05:57)
[2020-04-28 00:18] VITALS: BP 97/45; PULSE 80; RESP 16; TEMP 36.4; O2SAT 97
[2020-04-28] MEDS: Ketorolac 30 MG/ML Syringe IV (03:09)
[2020-04-28] MEDS: 0.9% Saline Lock 10 ML Syringe IV (03:10)
[2020-04-28 04:35] VITALS: BP 107/52; PULSE 71; RESP 16; TEMP 36.4
[2020-04-28 06:06] LABS: Hematocrit 32.6 % (37-47); Hemoglobin 10.5 g/dL (12.0-15.0); Mean Corp Hgb Conc 32.2 g/dL (32-36); Mean Corpuscular Hgb 29.2 pg (27.0-32.0); Mean Corpuscular Volume 90.6 fL (81-99); Mean Platelet Vol. 9.4 fl (6.2-12.0); Platelet Count 423 K/mm3 (150-450); RBC Distribution Width CV 13.8 % (11.6-14.6); RBC Distribution Width SD 45.7 fl (35.1-43.9); White Blood Count 15.1 K/mm3 (4.4-11.0)
--- NOTE | 2020-04-28 06:48 | PCM.PN.OB ---
Subjective: No overnight complaints. Pain well controlled. - Physical Exam Vitals/I&O's: Vital Signs Temp Pulse Resp BP Pulse Ox 97.5 F L 71 16 107/52 L 97 04/28/20 04:35 04/28/20 04:35 04/28/20 04:35 04/28/20 04:35 04/28/20 00:18 Oxygen Delivery Method Room Air Weight: 204 lb 9.6 oz Body Mass Index (BMI) 36.2 Intake and Output for Last 24 Hours 04/26/20 04/27/20 04/28/20 23:59 23:59 23:59 Intake Total 3550 / 3550 Output Total 1250 / 1250 Balance 2300 / 2300 General: Alert, Oriented x3, Cooperative, No apparent distress HEENT: Atraumatic Oral: Moist Mucosa Neck: Supple Abdomen: Soft, Non Tender, - - Bandage clean dry and intact Extremities: No clubbing, No cyanosis, No edema Neurological: Neuro grossly intact Psych/Mental Status: Normal Affect, Appropriate, Alert and oriented to time, place, person, mood and affect Laboratory Results 04/28/20 05:50: WBC 15.1 H, RBC 3.60 L, Hgb 10.5 L, Hct 32.6 L, MCV 90.6, MCH 29.2, MCHC 32.2, RDW Std Deviation 45.7 H, RDW Coeff of Shaheed 13.8, Plt Count 423, MPV 9.4 Current Medications Acetaminophen (Acetaminophen 500 Mg Tablet) 1,000 mg PO Q6 [facility] Last Admin: 04/28/20 05:57 Dose: 1,000 mg Documented by: Bisacodyl (Bisacodyl 10 Mg Suppository) 10 mg RC UD PRN PRN Reason: If no BM Diphenhydramine HCl (Diphenhydramine 25 Mg Capsule) 25 mg PO Q6H PRN PRN PRN Reason: ITCHING Stop: 04/28/20 08:35 Enoxaparin Sodium (Enoxaparin 40 Mg/0.4 Ml Syringe) 40 mg SC DAILY@2200 [facility] Last Admin: 04/27/20 21:16 Dose: 40 mg Documented by: Hydrocortisone (Hydrocortisone 2.5% Crm) 1 applic TOPICAL TID PRN PRN; Protocol PRN Reason: Discomfort Ibuprofen (Ibuprofen 600 Mg Tablet) 600 mg PO Q6H [facility] Nalbuphine HCl (Nalbuphine 10 Mg/Ml Ampul) 5 mg IV Q3H PRN PRN PRN Reason: ITCHING Stop: 04/28/20 08:35 Naloxone HCl (Naloxone 0.4 Mg/Ml Syringe) 0.02 mg IV Q1M PRN PRN Reason: RR <10 and pt unresponsive Ondansetron HCl (Ondansetron 4 Mg/2 Ml Vial) 4 mg IV Q4H PRN PRN PRN Reason: Nausea Oxycodone HCl (Oxycodone 5 Mg Tablet) 5 mg PO Q4H PRN PRN PRN Reason: Pain Score 4-10 Prochlorperazine Edisylate (Prochlorperazine 10 Mg/2 Ml Vial) 10 mg IV Q6H PRN PRN PRN Reason: NAUSEA Senna/Docusate Sodium (Senna/Docusate Sodium 1 Tablet) 0 tablet PO DAILY [facility] Last Admin: 04/27/20 09:12 Dose: Not Given Documented by: Simethicone (Simethicone 80 Mg Tablet) 80 mg PO PCHS PRN PRN Reason: Indigestion/stomach pain Sodium Chloride (0.9% Saline Lock 10 Ml Syringe) 5 - 15 ml IV UD PRN PRN Reason: SALINE FLUSH Last Admin: 04/28/20 03:10 Dose: 10 ml Documented by: Medical Necessity - Tobacco Use Smoking Status: Current every day smoker Assessment/Plan All Active Problems (Last Updated 06/07/19 @ 18:[address] Amy Tubbs MD) SROM (spontaneous rupture of membranes) (Acute) 38 weeks gestation of (Acute) Non-reassuring electronic monitoring tracing (Acute) Postoperative day 1 status post repeat section bilateral tubal ligation. Pain well controlled. Okay to discharge home today if okay with strain technician
[2020-04-28 07:37] VITALS: BP 118/52; PULSE 98; RESP 18; TEMP 36.1
[2020-04-28] MEDS: Senna/Docusate Sodium 1 Tablet PO (09:02)
[2020-04-28] MEDS: Ibuprofen 600 MG Tablet PO (09:02)
[2020-04-28 12:00] VITALS: BP 111/50; PULSE 94; RESP 18; TEMP 35.8; O2SAT 98
--- NOTE | 2020-04-28 13:15 | CASEMGMT ---
Social Work Assessment Labor and Delivery Unit Patient [facility] [place] [id number] Phone number: [phone] Date of Referral: 04.27.2020 Time of Referral: [phone] Referred By: Dr. Alvarez Albright Date of Intervention: 04.28.2020 Time of Intervention: 1230 Reason for Referral: late care, 11 month old at home, currently on WIC History obtained from: medical records, mother of baby (MOB) Nandini Gomes, and father of baby (FOB) Phi Bernal. Household composition: MOB, FOB, and their older child. FOB reports home is an efficiency apartment with the kids sharing one room, and the parents sleeping in the kitchen area. Patient's parent/guardian status: SESAR is a single 24 year old female involved with the FOB who is age 42 ( [birth year]). Records indicate the parents have been together for over 4 years now. MOB and FOB share 2 children together: Lorrie Bernal (born 06.07.2019) and baby Kaveh Bernal (born 04.27.2020). FOMason has at least 5 other children. FOB reports he may be an option to get custody of his 4 year old son Phi Samuel in the future. FOB reports to see his other children. Medical History: SESAR is G2, P1 to 2 after delivering Kaveh. care started late at 22 weeks gestation. MOB reports she did not know she was . SESAR delivered aKveh via and had tubal ligation performed. Baby 39 weeks gestation at , Apgars 9 and 9, and weight 6 pounds 13 ounces. Educational Status: SESAR graduated high school, but does have reported history of learning disability. Financial Status: FOB reports he will be starting a job this weekend working [employer]. Infant Supplies: FOB reports to have all needed baby supplies including safe sleep spaces for both Shanel and Kaveh. Car seat, clothes, diapers, wipes, bottles, and formula in place. Childcare/Caregiver(s): MOB to be primary caregiver, along with help from the FOB. Transportation: Reliant on FOMason's niece. Report to have other options from a nephew, a friend named Diandra, and [facility] from the [facility]. Programs/Agencies Involved: Active with S for food and medical. Active with WIC. DELROY declines any Help Me Grow or Early Head Start referral. Reports to feel there is adequate support from the Care Center and [facility]. DELROY reports has contacted [employer](yesterday) and Betty for help with the Rapid Rehousing program, in order to get a larger apartment. Children Services/Legal Issues: No reported current legal issues. DELROY has history with [facility] for other children throughout the years. MOB and DELROY both deny any children services involvement since Shanel was born, related to concerns regarding MOB and DELROY. DELROY reports to have a current case with [facility] ([place]) due to 4 year old's mother getting picked up for drugs. DELROY reports has started parenting classes and anger management with [employer], as the county court judge doesn't want to automatically rule the FOB out as potential caregiver to the 4 year old. The 4 year old currently residing with maternal grandmother. Behavioral Health Issues: Mental Health History: SESAR has history of Bipolar disorder, no current treatment. MOB and DELROY both deny that SESAR experienced any depression or anxiety after Shanel was born. When talking to SESAR privately, MOB did disclose thinking of suicide once, but then looking at Shanel knew that suicide was not an option. So based on this, SESAR has had some suicidal thoughts in the last year. No attempt or plan reported. No current thoughts reported, and none in the last 7 days based on depression screen done this date (refer to attached link). Substance Use History: SESAR denies substance use history. Family History: SESAR reports she has cut off her mother and siblings due to drug activity. DELROY has history of alcohol use issues, but reportedly in recovery of 7 years Drug Screens: Maternal drug screen negative on admission 04.27.2020. No other testing noted in the chart. Baby's urine is negative and meconium is pending. Family/Social Stressors: Unplanned , but accepted. Limited finances, and FOB working with community agencies to help with support for alternate housing. Just moved to efficiency apartment in the fall of 2019. DELROY reported there is a lot going on his life that no one knows about, but that DELROY deals with it and moves on for his family. Support Systems: FOB and FOMason's 18 year old niece. The niece and the niece's mother are watching Shanel while MOB and FOB are at the hospital. Depression/Shaken Baby/Safe Sleeping: Information provided on each said topics. ASSESSMENT: Met with MOB and FOB in room. FOB greeted this functional tester typewriters by name, as has talked with this functional tester typewriters in the past during during prior children's deliveries. FOB did most of the talking and MOB interjected intermittently. OB quiet and reserved throughout social work visit. MOB spoke up to say that she cut off her family due to drug activity, once FOB talked about cutting people out of his own life due alcohol and drugs. MOB also gave input on how long the family was living at new apartment. When attempting to explore whether MOB experienced any depression after Shanel, the MOB stated no and then the FOB took over the conversation and reported that MOB did not have PPD last time, won't this time either, and that FOB has a lot of people looking after the MOB. FOB reports plan to help MOB when at home and then on the weekends when FOB is working to have FOMason's niece come to help the MOB out. FOB reports that does not want children services involved this time as the children have clothing, skilled nursing, and food; reports all of the bills are paid. FOB reports has started working with agencies for help on upgrading housing. This functional tester typewriters let MOB and FOB know that this functional tester typewriters to complete a depression screen and this is to be done one on one with the MOB. FOB looked that this functional tester typewriters and kept talking, and taking care of baby. FOB fed the baby a bottle, and was gentle with the baby. When baby was done, did not observe FOB burping the baby, the baby then appeared to projectile vomit. Observed the FOB clean the baby up and make comment that baby drank too fast without burping. Note, MOB able to say that baby feeds every 2-3 hours. FOB then changed the diaper and told MOB You need to wash that so it doesn't stain. MOB got out of bed and completed task and FOB directed where to put the clothing at. FOB made comment that this functional tester typewriters could keep asking questions. This functional tester typewriters informed FOB again about the depression screen and that this needs to be done with the MOB. FOB stated, I'm not answering them. Explained that this functional tester typewriters completes screening 1:1 with mothers. FOB made no comment, then finished up with the baby and left the room. This functional tester typewriters noted that the door was not properly shut and then heard phone ringing loudly. MOB stated that sound was the FOB's ringtone. This functional tester typewriters asked MOB if MOB would like this functional tester typewriters to read the depression screen to MOB. MOB agreed, and was holing baby during this time. Read the questions to MOB, and reframed a few as MOB had a hard time answering (score is a 2, refer to attached link). MOB denied any symptoms, but then later on shared that over the last month had hard time sleeping due to , and does sometimes get overwhelmed about having clothes for the baby. Explored if the family has clothes and MOB stared at diaper back and indicated to have some. Explored how MOB gabbi and MOB reports FOB goes his way and MOB goes her way when upset. Otherwise no additional coping skills identified. Verbally reviewed with the MOB signs to look for regarding depression. This functional tester typewriters hand wrote out to MOB whether the FOB has ever been abusive to MOB or if MOB feels threatened (noted in past delivery allegations made of this by a concerned caller). MOB smiled slightly and said no, no concerns. This functional tester typewriters got up and opened the door to find the FOB leaning on door frame on phone, as if listening to conversation. When the FOB entered the room, this functional tester typewriters let MOB know that would go and look for a few baby outfits. FOB's demeanor appearing irritable, stating that wants to go home and ride is coming. Also made comments that dealing with a lot in his life right now that no one knows about, that FOMason just deals with it so that can help his family. FOB also stated that FOB and MOB deal with their own issues together, and do not talk to anyone, as well as deal with their own kids issues themselves and don't talk to anyone. Attempted to explore whether a grinder lap appointment as been made yet, and the MOB looked to the FOB. FOB reports planning to call the office when goes home but the appointment which will be with Shanel's doctor. No intent to make appointment prior to leaving hospital. Noted in chart that MOB was sleeping with baby last evening and that safe sleeping reviewed with MOB at that time. Provided parents with community resource list, information on shaken baby prevention, safe sleeping, depression and anxiety, as well as 2 outfits. PLAN: MOB and baby to home this date, with resource information provided for home going. Anticipate call to [facility] for possible dependency issues for this family. -ERYN Lane, DANIELLE *Information documented in this assessment generated with [employer]*
--- NOTE | 2020-04-29 13:30 | CASEMGMT ---
Social Work Labor and Delivery Unit Called [facility] ([facility]) and spoke with Cathie Villalobos in the intake department ([phone], extension [phone]). Brief maternal and infant histories provided. Referral due to possible dependency concerns: FOB currently involved with [facility] services for one FOB's older children as well as past children services issues for other children; concern for possible limited finances and adequate housing though the FOB reports recently working with agencies to get help with housing and will be starting a new job this weekend; FOB appearing to be controlling as evidenced by taking over conversation, telling MOB what to do, and appearing to be eavesdropping on this contract technical writer's private 1:1 conversation with MOB, then afterwards appearing irritable and telling this contract technical writer that FOB and MOB deal with their own issues together rather than talking to others; concern expressed by the MOB about having clothes for baby; maternal mental bc history currently untreated as well as FOB dismissing mood issues as something which could develop for MOB; FOB history of substance use though reportedly sober. Reported that FOB has indicated the family is currently working with WIC, S, and Care Center; refuses referrals to [facility] or Early Head Start. Referral will be written up and determined whether will be screened in for investigation. No other services requested or indicated. -ILSA Lane
== END 2020-04-28 12:45 | disposition home or self-care (01) | DRG 539 ==
PROVIDERS: Admitting Provider Obstetrics & Gynecology; Referring Provider Obstetrics & Gynecology; Visit Provider Obstetrics & Gynecology
PROC: 10D00Z1 Extraction of Products of Conception, Low, Open Approach (ICD-10-PCS; CPT 59514; principal; 2020-04-27 07:15)
DX: O34.211 Maternal care for low transverse scar from previous cesarean delivery (principal); Z30.2 Encounter for sterilization; Z37.0 Single live birth; O99.334 Smoking (tobacco) complicating childbirth; J45.909 Unspecified asthma, uncomplicated; O99.52 Diseases of the respiratory system complicating childbirth; Z3A.39 39 weeks gestation of pregnancy; F17.200 Nicotine dependence, unspecified, uncomplicated
CPT/HCPCS: 80307; 85025; 85027; 86850; 86900; 86901; 87635; 88302; 99218; C9803; J7120; U0005; 90686; A4216; G0378; J2405; U0003

== ENCOUNTER 2024-12-25 19:20 | Emergency (ER) | payer MEDICAID, SELFPAY ==
[2024-12-25 19:20] VITALS: BP 113/80; PULSE 130; RESP 22; TEMP 36.2; O2SAT 96; BMI 36.2
--- NOTE | 2024-12-25 19:28 | EX.ED.DYSGE1 ---
HPI History of Present Illness Chief Complaint: General Illness Detail of Chief Complaint: Flulike symptoms Informant: patient and spouse/S.O. Onset/Context/Timing Onset: Days (2 days ago) Context: Sudden Onset Timing: Continuous and Waxes and wanes Quality: Myalgias, arthralgias, upper respiratory symptoms, nausea and Location: Generalized Current Severity: Moderate Maximum Severity: Severe Worsened by: Nothing Relieved by: Nothing Associated Symptoms Associated Symptoms: HPI narrative Narrative Narrative: Patient is a 29-year-old female. She has no significant past medical history. She presents with headache, subjective fever, sweats, nonproductive cough, myalgias and arthralgias, nausea and vomiting that started today. Her symptoms started 2 days ago. She has been around other family members and other nonfamily's with flulike symptoms. states he was diagnosed with acute bronchitis. She has not noted a rash. She denies diarrhea. She does endorse thirst, dry mouth and decreased urine output. She denied orthostatic symptoms. Prior similar symptoms: Yes Recent Illness/Hospitalization: No PFSH PFS Medical History Bipolar disorder Home Medications ?Medication ?Instructions ?Recorded ?Last Taken ?Type NK 12/25/24 Unknown History Allergy/AdvReac Type Severity Reaction Status Date / Time No Known Allergies Allergy Verified 12/25/24 19:23 Surgical History H/O wisdom tooth extraction Social History Smoking Status: Current every day smoker tobacco type: cigarettes ROS ROS ED Constitutional Constitutional ED: Reports fever(s) and subjective; Denies chills or weight loss Eyes Eyes: Denies blurry vision or change in vision ENT ENT ED: Reports rhinorrhea and sore throat; Denies ear pain Cardiovascular Cardiovascular: Denies chest pain, orthopnea, palpitations or paroxysmal nocturnal dyspnea Respiratory/Chest Respiratory/Chest: Reports cough and dyspnea; Denies dyspnea on exertion, orthopnea, paroxysmal nocturnal dyspnea or sputum Gastrointestinal Gastrointestinal: Reports abdominal pain, nausea, vomiting and other Details: She denied coffee-ground emesis or hematemesis. ; Denies constipation, diarrhea or melena Genitourinary Genitourinary ED: Denies dysuria, hematuria or urinary frequency Musculoskeletal Musculoskeletal: Reports arthralgias and myalgias; Denies back pain Integumentary Denies rash Neurologic Neurologic: Reports headache(s) and weakness; Denies paresthesias Hematologic/Lymphatic Hematologic/Lymphatic: Reports systems reviewed and no addt'l complaints, except as documented EXAM Physical Exam Const Vital Signs: 12/25/24 19:20 12/25/24 20:20 12/25/24 20:25 Temperature 97.2 F L Temperature Source Temporal Pulse Rate 130 H Pulse Rate [Lying] 98 Pulse Rate [Sitting (for 1 minute prior to obtaining)] 107 H Pulse Rate [Standing (for 1 minute prior to obtaining)] 109 H Respiratory Rate 22 H Respiratory Effort Normal Respiratory Pattern Normal Blood Pressure 113/80 Blood Pressure [Lying] 115/63 Blood Pressure [Standing (for 1 minute prior to obtaining)] 111/78 Blood Pressure Mean 91 Blood Pressure Mean [Lying] 80 Blood Pressure Mean [Standing (for 1 minute prior to obtaining)] 89 Pulse Ox 96 Oxygen Delivery Method 12/25/24 20:27 Temperature 98.9 F Temperature Source Oral Pulse Rate 99 Pulse Rate [Lying] Pulse Rate [Sitting (for 1 minute prior to obtaining)] Pulse Rate [Standing (for 1 minute prior to obtaining)] Respiratory Rate 20 H Respiratory Effort Respiratory Pattern Blood Pressure 111/78 Blood Pressure [Lying] Blood Pressure [Standing (for 1 minute prior to obtaining)] Blood Pressure Mean 89 Blood Pressure Mean [Lying] Blood Pressure Mean [Standing (for 1 minute prior to obtaining)] Pulse Ox 100 Oxygen Delivery Method Room Air Positive well nourished and well developed Constitutional Narrative: Patient appears ill but not toxic. Vital signs are micro tachycardia and tachypnea. She not hypoxic nor she febrile. General Appearance ED: well developed and pallor HEENT Reports dry mucous membranes HEENT Narrative: Head is atraumatic normocephalic. Ears normal. External auditory canals normal. TMs are normal. Nares patent with clear discharge. Posterior pharynx without erythema or exudate. There is evidence of postnasal drainage. Hirsutism Mouth ED: Yes dry mucous membranes Mouth: dry mucous membranes Eyes PERRL and EOMs intact bilaterally General Eye ED: Negative for pale conjunctiva or scleral icterus Neck no lymphadenopathy, supple and no JVD Resp normal respiratory effort and clear to auscultation bilaterally Cardio regular rhythm, S1 normal heart sound, S2 normal heart sound and no murmurs Rate: tachycardic GI normal to inspection, nondistended, normoactive bowel sounds, non-tender, non-distended and no masses; Negative for hepatosplenomegaly Back/Spine no CVA tenderness Extremity normal to inspection General Extremety ED: Negative for edema or tenderness General Extremity: Negative for edema Neuro oriented x3 and CN's II-XII intact bilaterally Sensorium / Orientation: alert Psych mental status grossly normal Skin no rashes or lesions noted, no wounds and No skin turgor normal General Skin Exam: elasticity normal and pallor; Negative for jaundice MDM MDM MDM Narrative Medical decision making narrative: Patient with flulike symptoms. Will assess for RSV, influenza and COVID. Since she is tachycardic clinically dehydrated 1 L normal saline was ordered. She also received Zofran for her nausea and vomiting. Since her lungs are clear to auscultation and she has nonproductive cough imaging was not obtained. Since there is no contraindication she received acuter Wolak for her myalgias and arthralgias. Lab Data Attestation: I reviewed the patient's lab results. Lab results narrative: Basic metabolic panel is unremarkable. Serum test is negative. Rapid influenza, COVID and RSV are negative. Labs: Laboratory Results - last 24 hr 12/25/24 20:11 Sodium 139 Potassium 3.5 Chloride 103 Carbon Dioxide 22.8 Anion Gap 13 BUN 8 Creatinine 0.66 L Estim Creat Clear Calc 132.23 Est GFR (MDRD) Non-Af 122 BUN/Creatinine Ratio 12.6 Glucose 97 Calcium 9.2 Serum , Qual NEGATIVE Treatment and Re-Evaluation :: Patient's heart rate improved with IV fluids. Patient has a upper respiratory infection due to a viral illness. Treatment is symptomatic. Discharge Plan Triage Chief Complaint: General Illness ED Provider: Velazquez,Ralph Dx/Rx/DC Orders Clinical Impression: Upper respiratory infection with cough and congestion, Nausea & vomiting, Acute dehydration, Sinus tachycardia seen on security monitor Instructions: ED URI, Viral, No Abx (Adult) Prescriptions: No Action NK Primary Care Provider: Care Physician,No Primary Referrals: Care Physician,No Primary [Primary Care Provider, Medical] Activity Restrictions/Additional Instructions: Follow-up with your doctor if no improvement in 1 to 2 weeks. If you do not have an assigned doctor you may follow-up with Dr. Reyes Print Language: Telugu Disposition Disposition: Home, Self Care
[2024-12-25] MEDS: 0.9% Normal Saline (1000mL) 1,000 ML 1000 ML IV (20:13)
[2024-12-25 20:20] VITALS: BP 111/78; BP 115/63; PULSE 107; PULSE 109; PULSE 98
[2024-12-25 20:27] VITALS: BP 111/78; PULSE 99; RESP 20; TEMP 37.2; O2SAT 100
[2024-12-25 20:50] LABS: Anion Gap 13 (5-15); BUN 8 mg/dL (4-19); BUN/Creat Ratio 12.6 RATIO (10-20); Calcium,Total 9.2 mg/dL (7.6-11.0); Carbon Dioxide 22.8 mmol/L (21.0-32.0); Chloride 103 mmol/L (98-108); Estimated Creatinine Clearance 132.23 ml/min (50-250); Glucose 97 mg/dL (70-99); Potassium 3.5 mmol/L (3.3-5.1)
[2024-12-25 21:09] LABS: Internal QC Validated? YES +Cl - CLEAR BKGD; Pregnancy, Serum, hCG Quali. NEGATIVE Negative; Record Kit Lot#, Serum Preg. 980607
[2024-12-25 22:00] VITALS: BP 120/77; PULSE 106; RESP 20; TEMP 37.2; O2SAT 100
[2024-12-25 22:16] VITALS: BP 120/77; PULSE 105; RESP 20; TEMP 37.2; O2SAT 100
== END 2024-12-25 22:26 | disposition home or self-care (01) ==
PROVIDERS: Emergency Provider Emergency Medicine; Visit Provider Emergency Medicine
DX: J06.9 Acute upper respiratory infection, unspecified (principal); R05.9 Cough, unspecified; R11.2 Nausea with vomiting, unspecified; R00.0 Tachycardia, unspecified; E86.0 Dehydration; F17.210 Nicotine dependence, cigarettes, uncomplicated
CPT/HCPCS: 80048; 84703; 87631; 96361; 96374; 99284; A4216; J2405